=== PATIENT | female | born 1945 | race Caucasian/White ===

== ENCOUNTER 2016-11-12 10:33 | Day surgery (SDC) | payer OTHER ==
[~2016-11-12] VITALS: Ht 160 cm; Wt 79.7 kg
[~2016-11-12 10:33] MED LIST: AMLO-147 PO; FOLI-49 PO; GABA300C16 PO; LANT3I SC; LISI-313 PO; LOSA25TA2 PO; PANT40TA4 PO; SULI150T39 PO
[2016-11-12] MEDS ORDERED: PROPOFOL 20 ML ONE (10:55)
[2016-11-12] MEDS ORDERED: ALLO100T PO (11:33)
[2016-11-12] MEDS ORDERED: NITR0.4T6 SL (11:33)
[2016-11-12] MEDS ORDERED: FURO20TA3 PO (11:33)
[2016-11-12] MEDS ORDERED: METO25TA4 PO (11:33)
[2016-11-12 11:37] VITALS: Ht 160 cm; Wt 79.7 kg
[2016-11-12 11:52] VITALS: BP 106/56; PULSE 75; RESP 10
--- NOTE | 2016-11-12 12:34 | GILP ---
DATE OF PROCEDURE: 11/12/2016 NAME OF PROCEDURE: Colonoscopy. SURGEON: Claudio Morillo MD PREOPERATIVE DIAGNOSES: Rectal bleeding. POSTOPERATIVE DIAGNOSES 1. Colonoscopy all the way to the cecum. 2. Poor prep, making the exam very suboptimal. 3. Internal and external hemorrhoids. INDICATION FOR THE PROCEDURE: Ms. Marsha Mcqueen is a 71-year-old female patient who had rectal bleed ing. The patient never had screening colonoscopy. The patient was scheduled for colonoscopy for fu rther evaluation. The procedure and possible complications are well explained to the patient and the family and consen t was obtained. DESCRIPTION OF PROCEDURE: Under the influence of anesthesia, the colonoscope was carefully introduc ed in the rectum and under direct vision, it was advanced all the way to the cecum. FINDINGS: The patient had some solid stool, especially in the sigmoid area making the exam very sub optimal. The patient was noted to have internal and external hemorrhoids. She tolerated the procedure very well and there was no complication from the procedure. At the end of the procedure, she was awake with stable vital signs and she was discharged home to the care of h er family. IMPRESSION: 1. Colonoscopy all the way to the cecum. 2. Poor prep with solid stool in the sigmoid colon making the exam very suboptimal. 3. Internal and external hemorrhoids. PLAN: Anusol-HC 2.5% cream b.i.d. Dictated By: CLAUDIO JOHNSON/SOFIYA Conf#: [id number] DID#: [id number] CC: CLAUDIO MORILLO MD;*EndCC*
[2016-11-12 12:44] VITALS: BP 104/56; RESP 20
--- NOTE | 2016-11-12 22:39 | CONS ---
DATE OF ADMISSION: 11/12/2016 DATE OF CONSULTATION: TYPE OF CONSULTATION: Preoperative gastroenterology. I thank you very much for this kind referral. HISTORY OF PRESENT ILLNESS: Ms. Marsha Mcqueen is a 71-year-old female patient who has been ref erred to me for further evaluation of rectal bleeding. The patient also complains of change in the bowel habit with constipation. She never had screening colonoscopy. There is no past history of co brian neoplasm. Her appetite has been good, and there is no history of significant weight loss. She does not have any upper abdominal pain, nausea or vomiting. There is no history of peptic ulcer dis ease. She is not taking any nonsteroidal anti-inflammatory agents. There is no history of gallston es. She does not have any fever, chills or jaundice. There is no history of liver disease. She is hypertensive. She has diabetes. There is no history of heart disease or lung problem. She has hi story of renal stones. SOCIAL HISTORY: She is a nonsmoker. She does not abuse alcohol. FAMILY HISTORY: Negative for gastrointestinal tract neoplasm. ALLERGIES: SHE SAYS SHE IS ALLERGIC TO PRAVASTATIN. MEDICATIONS: 1. Lisinopril. 2. Metformin. PHYSICAL EXAMINATION: GENERAL: She is 5 feet 2 inches tall, and she weighs 200 pounds. HEART: Normal first and second heart sounds. LUNGS: Clear. ABDOMEN: Soft without any distention. The patient has got surgical scar on the anterior abdominal wall. Liver and spleen are not palpable. There are no masses. Normal bowel sounds are heard. CENTRAL NERVOUS SYSTEM: Examination does not reveal any focal neurological deficit. IMPRESSION: 1. Rectal bleeding. 2. The patient went to the emergency room, and rectal examination revealed hemorrhoid. 3. Change in the bowel habit with constipation. 4. The patient never had screening colonoscopy. 5. Hypertension. 6. Diabetes mellitus. 7. History of renal stones. 8. Status post surgery for ventral hernia. 9. HISTORY OF ALLERGY TO PRAVASTATIN. PLAN: 1. Screening colonoscopy. 2. Because of the patient's age, she needs monitored anesthesia care. The procedure and possible complications are well explained to the patient and her daughter. They u nderstand and consent to the procedure. I thank you once again. With warmest personal regards, Dictated By: CLAUDIO JOHNSON/SOFIYA Conf#: [id number] DID#: [id number]
== END 2016-11-12 13:10 | disposition home or self-care (01) ==
LOC: GIL 10:33
PROVIDERS: ATTEND Internal Medicine Gastroenterology
DX: R19.4 Change in bowel habit (principal); K64.4 Residual hemorrhoidal skin tags; K64.8 Other hemorrhoids; I10 Essential (primary) hypertension; E11.9 Type 2 diabetes mellitus without complications
CPT/HCPCS: 45378; Z7610

== ENCOUNTER 2016-12-06 10:03 | Day surgery (SDC) | payer OTHER ==
[2016-12-06] VITALS (14 sets, daily range): BP systolic 92–124; BP diastolic 46–73; PULSE 64–72; RESP 16–25; Ht 157.5 cm; Wt 77.0 kg
[~2016-12-06] VITALS: Ht 157.5 cm; Wt 77.0 kg
[~2016-12-06 10:03] MED LIST changes: +ALLO100T PO; -AMLO-147 PO; +CEFAZOLIN 1 GM INJ ONE; +CEFAZOLIN 2 GM/50 ML (PMX) 50 ML IVPB SCH; +FURO20TA3 PO; -LISI-313 PO; +METO25TA4 PO; +NITR0.4T6 SL; -PANT40TA4 PO; +SOD CHLORIDE 0.9% 1,000 ML IV SCH; +SUCCINYLCHOLINE CHLORIDE 100 MG/5 ML SYG IV ONE
[2016-12-06] MEDS ORDERED: HYDR-3498 (11:15)
[2016-12-06] MEDS ORDERED: PRAV20TA63 PO (11:15)
[2016-12-06] MEDS ORDERED: BUPIVACAINE 0.25% (MPF) 30 ML INJ ONE (11:21)
[2016-12-06 11:22] LABS: ADD SCAN DIFF NO
[2016-12-06 11:23] LABS: BASOPHILS % 0.5 % (0.0-2.0); EOSINOPHILS # 0.4 10^3/ul (0.0-0.5); EOSINOPHILS % 6.2 % (0.0-7.0); HEMOGLOBIN 10.6 g/dl (12.0-16.0); LYMPHOCYTES # 1.3 10^3/ul (0.8-2.9); LYMPHOCYTES % 22.6 % (15.0-51.0); MEAN CORPUSCULAR HEMOGLOBIN 23.9 pg (29.0-33.0); MEAN CORPUSCULAR HGB CONC 32.1 g/dl (32.0-37.0); MEAN CORPUSCULAR VOLUME 74.5 fl (82.0-101.0); MONOCYTE # 0.3 10^3/ul (0.3-0.9); MONOCYTES % 5.9 % (0.0-11.0); NEUTROPHIL # 3.6 10^3/ul (1.6-7.5); NEUTROPHILS % 64.4 % (39.0-77.0); PLATELET COUNT 264 10^3/UL (140-415); RED BLOOD COUNT 4.43 10^6/ul (4.20-5.40); RED CELL DISTRIBUTION WIDTH 15.5 % (11.5-14.5); WHITE BLOOD COUNT 5.6 10^3/ul (4.8-10.8)
--- NOTE | 2016-12-06 11:33 | RADRPT ---
PROCEDURE: XR Chest 1 View. CLINICAL INDICATION: Abnormal breath sounds, preop. TECHNIQUE: AP view of the chest was obtained. COMPARISON: August 07, 2016 FINDINGS: The heart size is within normal limits. Calcified atherosclerosis is noted in the aorta. Mild eleva tion right hemidiaphragm is identified. No consolidations are identified. No pneumothorax is seen. The lungs are hyperexpanded. Mild interstitial prominence is seen in both lungs. Subsegmental atele ctasis is noted in the left lower lobe. The osseous structures are osteopenic, but appear grossly in tact. IMPRESSION: Calcified atherosclerosis in the aorta. Mild elevation right hemidiaphragm. Hyperexpanded lungs with diffuse mild interstitial prominence in both lungs. Interstitial prominenc e could be chronic. Findings could reflect COPD. Subsegmental atelectasis in the left lower lobe. RPTAT: AA .Saulo Toth MD, Date Time Electronically viewed and signed by .Saulo Toth MD, MD on 12/06/2016 11:33 .P/
[2016-12-06 11:35] LABS: CALCIUM 9.2 mg/dl (8.4-10.2); CREATININE 1.05 mg/dl (0.44-1.00); POTASSIUM 4.2 mmol/L (3.5-5.1)
[2016-12-06 11:41] LABS: INR 1.01; PROTIME 13.3 Sec (12.2-14.2)
[2016-12-06 11:46] LABS: PARTIAL THROMBOPLASTIN TIME 26.2 Sec (25.0-35.0)
[2016-12-06] MEDS ORDERED: FENTAnyl 50 MCG/ML VIAL ONE (11:58)
[2016-12-06] MEDS ORDERED: EPHEDrine SULFATE 50 MG/5 ML SYG IV PRN (12:30)
[2016-12-06] MEDS ORDERED: MEPERIDINE 25 MG INJ IV PRN (12:30)
[2016-12-06] MEDS ORDERED: INSULIN ASPART [NOVOLOG] 3 ML PEN SC ONE (12:30)
[2016-12-06] MEDS ORDERED: hydrALAzine 20 MG INJ IV PRN (12:30)
[2016-12-06] MEDS ORDERED: LABETALOL HCL 20MG INJ IV PRN (12:30)
[2016-12-06] MEDS ORDERED: HYDROmorphONE (0.2 MG/ML) 10ML SYG IV PRN ×3 (12:30)
[2016-12-06] MEDS ORDERED: FENTAnyl 50 MCG/ML VIAL IV PRN ×3 (12:30)
[2016-12-06] MEDS ORDERED: ONDANSETRON 4 MG INJ IV PRN (12:30)
--- NOTE | 2016-12-06 13:24 | OPR ---
DATE OF OPERATION: 12/06/2016 INDICATION: This is a 71-year-old female with a mucosal prolapse. She requests surgical repair. R isks, alternatives, benefits, and personnel were discussed with the patient. Potential complication s were discussed. The patient expressed understanding and consents to the operation. Due to her ag e and morbidity a transanal approach is attempted. PREOPERATIVE DIAGNOSIS: Mucosal prolapse. POSTOPERATIVE DIAGNOSIS: Mucosal prolapse. OPERATION PERFORMED: 1. Transanal proctoplasty. 2. Ligation of the internal hemorrhoidal artery, multiple x6. 3. Rigid proctoscopy. SURGEON: Sai Person MD SPECIMEN: None. COMPLICATIONS: None. ANESTHESIA: General. PROCEDURE: The patient was taken to the OR and prepped and draped in the usual sterile fashion. Rowe rgical timeout was performed. IV antibiotics were given. Initial rigid proctoscopy was performed. No evidence of any masses or obstructive lesions. Ultrasound-guided transanal ligation of the hemo rrhoidal arteries were performed in a [id number] fashion circumferentially around the whole chante s. Additionally, a transanal proctoplasty was performed by first placing a [id number] 2-0 Vicr yl at the internal hemorrhoidal artery and plicating the mucosal prolapse up to the dentate line. T his was then tied down with proximal retraction. This was performed in 6 to 7 areas circumferential ly. There was good hemostasis. Rigid proctoscopy was performed again to make sure that there was p atency of the anal canal. There was good patency. Local anesthesia was injected perianally. There was hemostasis. Dry dressings were applied. Dictated By: SAI PERSON MD SB/SOFIYA Conf#: [id number] DID#: [id number]
[2016-12-06] MEDS ORDERED: HYDROCODONE/APAP (5/325) TAB PO ONE (13:30)
--- NOTE | 2016-12-07 13:26 | RADRPT ---
Vent Rate: 62 bpm RR Interval: 0 msec [place] Interval: 132 msec QRS Duration: 90 msec QT Interval: 456 msec QTC Interval: 462 msec P-R-T [place]: 37 - -4 - 41 degrees Normal sinus rhythm Normal ECG No previous tracing available for comparison Electronically Signed By: Yonny Joy [id number]
== END 2016-12-06 16:00 | disposition home or self-care (01) ==
LOC: SDS 10:03
PROVIDERS: ATTEND Surgery
DX: K62.3 Rectal prolapse (principal); I10 Essential (primary) hypertension; E11.9 Type 2 diabetes mellitus without complications
CPT/HCPCS: 45505; 46946; 71010; 80048; 82962; 85025; 85610; 85730; 93005; J0330; J0690; J1170; J1815; J3010; Z7512; Z7610

== ENCOUNTER 2017-03-03 05:50 | Inpatient (IN) | payer OTHER ==
[~2017-03-03] VITALS: Ht 154.9 cm; Wt 80.1 kg
[2017-03-03] VITALS (18 sets, daily range): BP systolic 98–143; BP diastolic 51–92; PULSE 52–89; RESP 15–26; Ht 154.9 cm; Wt 80.1 kg
[~2017-03-03 05:50] MED LIST changes: -CEFAZOLIN 1 GM INJ ONE; +CEFAZOLIN 2 GM/50 ML (PMX) 50 ML IVPB ONE; -CEFAZOLIN 2 GM/50 ML (PMX) 50 ML IVPB SCH; +HYDR-3498; +PRAV20TA63 PO; -SUCCINYLCHOLINE CHLORIDE 100 MG/5 ML SYG IV ONE; -SULI150T39 PO
[2017-03-03] MEDS ORDERED: CEFAZOLIN 2 GM/50 ML (PMX) 50 ML IVPB SCH ×2 (06:00→10:30)
[2017-03-03] MEDS ORDERED: BUPIVACAINE 0.25% (MPF) 30 ML INJ ONE ×2 (06:57→10:11)
[2017-03-03] MEDS ORDERED: POLYMYXIN/BACITRACIN 1L IRRIG ONE (06:57)
[2017-03-03] MEDS ORDERED: ROCURONIUM 50 MG INJ ONE ×2 (07:52→09:21)
[2017-03-03] MEDS ORDERED: PROPOFOL 20 ML ONE (07:52)
[2017-03-03] MEDS ORDERED: LIDOCAINE 2% (SDV) 5 ML INJ ONE (07:52)
[2017-03-03] MEDS ORDERED: FENTAnyl 50 MCG/ML VIAL ONE (07:52)
[2017-03-03] MEDS ORDERED: CEFAZOLIN 1 GM INJ ONE (08:04)
[2017-03-03] MEDS ORDERED: ONDANSETRON 4 MG INJ ONE (08:23)
[2017-03-03] MEDS ORDERED: FAMOTIDINE 20 MG INJ ONE (08:23)
[2017-03-03] MEDS ORDERED: EPHEDrine SULFATE 50 MG/5 ML SYG ONE (08:24)
[2017-03-03] MEDS ORDERED: POLYMYXIN/BACITRACIN 1L IRRIG IRR ONE (08:47)
[2017-03-03] MEDS ORDERED: HYDROmorphONE 2 MG/ML SYG ONE (08:51)
[2017-03-03] MEDS ORDERED: NEOSTIGMINE 3 MG/3 ML SYRINGE ONE ×2 (09:21→10:09)
[2017-03-03] MEDS ORDERED: GLYCOPYRROLATE 0.4 MG INJ ONE (09:21)
[2017-03-03] MEDS ORDERED: PROCHLORPERAZINE 10 MG INJ IV PRN (10:00)
[2017-03-03] MEDS ORDERED: ONDANSETRON 4 MG INJ IV PRN (10:00)
[2017-03-03] MEDS ORDERED: MEPERIDINE 25 MG INJ IV PRN (10:00)
[2017-03-03] MEDS ORDERED: HYDROmorphONE (0.2 MG/ML) 10ML SYG IV PRN (10:00)
[2017-03-03] MEDS ORDERED: DIPHENHYDRAMINE 50 MG INJ IV PRN ×2 (10:00→10:30)
[2017-03-03] MEDS ORDERED: SOD CHLORIDE 0.9% 1,000 ML IV SCH (10:23)
--- NOTE | 2017-03-03 10:27 | OPR ---
Date/Time of Note Date/Time of Note DATE: 03/03/17 TIME: 10:25 Operative Report Preoperative Diagnosis rectal prolapse and recurrent incisional hernia Postoperative Diagnosis same Operation/Procedure Performed lap converted to open rectopexy mesh implantation lysis of adhesions 90 mins recurrent incisional hernia repair Luba RAMOS Mar 03, 2017 10:27
[2017-03-03] MEDS ORDERED: HYDROmorphONE 1 MG/ML SYG IV PRN ×2 (10:30)
[2017-03-03] MEDS ORDERED: NALOXONE (0.4 MG/ML) INJ IV PRN (10:30)
[2017-03-03] MEDS ORDERED: KETOROLAC 15 MG INJ IV PRN (10:30)
[2017-03-03] MEDS: FENTAnyl 50 MCG/ML VIAL IV PRN ×2 (10:41→10:52)
[2017-03-03] MEDS: HYDROmorphONE 0.2 MG/ML PCA IV SCH (10:46)
[2017-03-03] MEDS ORDERED: INSULIN ASPART [NOVOLOG] 3 ML PEN SC ONE (11:00)
--- NOTE | 2017-03-03 13:53 | OPR ---
DATE OF OPERATION: 03/03/2017 INDICATION: This is a 71-year-old female with a recurrent incarcerated incisional hernia and rectal prolapse. She requests surgical repair. Risks, alternatives, benefits, and personnel were discuss ed with the patient. Patient expressed understanding and consents to the operation. PREOPERATIVE DIAGNOSIS: Recurrent incarcerated incisional hernia and rectal prolapse. POSTOPERATIVE DIAGNOSIS: Recurrent incarcerated incisional hernia and rectal prolapse. OPERATION PERFORMED: 1. Laparoscopic converted to open rectopexy. 2. Open recurrent incarcerated incisional hernia repair. 3. Implantation of mesh in the abdomen with CPT code 025899. 4. Open lysis of adhesions of 90 minutes. SURGEON: Sai Person MD SPECIMEN: Hernia sac. COMPLICATIONS: None. ANESTHESIA: General. DESCRIPTION OF PROCEDURE: The patient was taken to the OR and prepped and draped in usual sterile fashion. Surgical timeout was performed. IV antibiotics were given. Supraumbilical midline incisi on is made with a 15 blade. Dissection cautery was carried down to the fascia, 0 Vicryl stay suture s were placed on either side of midline . The fascia was opened and balloon Alma trocar was intro duced. Pneumoperitoneum was established. Upon initial inspection, there were a significant amount of adhesions. Two ports were placed in the right lower quadrant, one 5 mm and one 12 mm under direc t visualization with an optical trocars. Laparoscopic lysis of adhesions was performed; however, up on further inspection, there was evidence that the bowel adherent to old mesh in the midline and dec ision was made to open the abdomen. Midline incision was extended excising the cicatrix of the prio r incision. Dissection cautery was carried down to the fascial layer. This was opened carefully us ing sharp 10 blade. Upon further inspection, there was extensive amount of adhesions in the abdomen . These were taken down with meticulous careful lysis of adhesions with Metzenbaum scissors. The r ectum was then identified. The peritoneum around the rectum was then divided allowing further super ior mobilization. Fixed Acell mesh was used for fixation to the rectum and the anterior portion wit h multiple interrupted 2-0 Vicryls. This was then rectopexied to the sacral promontory using interr upted 2-0 Vicryl. There was good hemostasis. The hernia was then identified in the inferior portio n of the midline. This hernia sac was excised. The midline incision was then closed with running # 1 looped PDS from inferior to superior, superior to inferior. The wound was irrigated with irrigati on. The skin was closed with skin con. Local anesthesia was injected in all sites. Dry dressi ngs were applied ____. Dictated By: SAI KIM/SOFIYA Conf#: [id number] DID#: [id number]
[2017-03-03 15:16] LABS: ADD SCAN DIFF NO
[2017-03-03 15:18] LABS: BASOPHILS % 0.2 % (0.0-2.0); EOSINOPHILS % 0.2 % (0.0-7.0); HEMATOCRIT 34.8 % (37.0-47.0); LYMPHOCYTES # 1.1 10^3/ul (0.8-2.9); LYMPHOCYTES % 8.3 % (15.0-51.0); MEAN CORPUSCULAR HEMOGLOBIN 24.7 pg (29.0-33.0); MEAN CORPUSCULAR HGB CONC 31.6 g/dl (32.0-37.0); MEAN CORPUSCULAR VOLUME 78.2 fl (82.0-101.0); MEAN PLATELET VOLUME 11.1 fl (7.4-10.4); MONOCYTE # 0.4 10^3/ul (0.3-0.9); MONOCYTES % 3.3 % (0.0-11.0); NEUTROPHIL # 11.2 10^3/ul (1.6-7.5); NEUTROPHILS % 87.7 % (39.0-77.0); PLATELET COUNT 211 10^3/UL (140-415); RED BLOOD COUNT 4.45 10^6/ul (4.20-5.40); RED CELL DISTRIBUTION WIDTH 16.6 % (11.5-14.5); WHITE BLOOD COUNT 12.8 10^3/ul (4.8-10.8)
[2017-03-03] MEDS ORDERED: DEXTROSE 50% 50 ML SYRINGE IV PRN ×2 (15:30)
[2017-03-03] MEDS ORDERED: hydrALAzine 20 MG INJ IV PRN (15:30)
[2017-03-03] MEDS ORDERED: GLUCOSE GEL 15 GRAM TUBE PO PRN ×2 (15:30)
[2017-03-03] MEDS ORDERED: GLUCAGON 1 MG INJ IM PRN (15:30)
[2017-03-03] MEDS ORDERED: GLUCOSE GEL 15 GRAM TUBE BUCCAL PRN (15:30)
[2017-03-03 15:37] LABS: ALBUMIN 4.2 g/dl (3.3-4.9); BILIRUBIN,INDIRECT 0.1 mg/dl (0-1.1); BILIRUBIN,TOTAL 0.1 mg/dl (0.2-1.3); CALCIUM 8.5 mg/dl (8.4-10.2); CREATININE 1.03 mg/dl (0.44-1.00); POTASSIUM 4.3 mmol/L (3.5-5.1); TOTAL PROTEIN 6.3 g/dl (6.1-8.1)
[2017-03-03] MEDS: ONDANSETRON 4 MG INJ IV PRN (16:12)
[2017-03-03] MEDS: SOD CHLORIDE 0.9% 1,000 ML IV SCH ×2 (16:16→19:20)
[2017-03-03] MEDS: CEFAZOLIN 2 GM/50 ML (PMX) 50 ML IVPB SCH ×2 (16:22→23:04)
--- NOTE | 2017-03-03 16:53 | HP ---
DATE OF ADMISSION: 03/03/2017 HISTORY OF PRESENT ILLNESS: The patient is a 71-year-old female with recurrent incarcerated incisio nal hernia and rectal prolapse. The patient was evaluated in surgical consultation by Dr. Person. The patient was brought to the hospital and underwent laparoscopic converted to open rectopexy open rec urrent incarcerated incisional hernia repair with implantation of mesh and lysis of adhesions. Post operatively, the patient experienced significant pain, and patient was started on SHOE REPAIRMAN Dilaudid and a dmitted for further evaluation and management to medical/surgical floor. The patient currently cuauhtemoc es any nausea, vomiting, fever. PAST MEDICAL HISTORY: Positive for hypertension, diabetes. PAST SURGICAL HISTORY: History of recurrent ventral hernia repair, history of colon surgery, status post hysterectomy and history of recurrent incarcerated incisional hernia repair by Dr. Person in [facility] 2015. FAMILY HISTORY: Noncontributory. SOCIAL HISTORY: The patient lives with her family. The patient denies any tobacco use, denies any alcohol use, denies any illicit drug use. ALLERGIES: NO KNOWN ALLERGIES. HOME MEDICATIONS: Include: 1. Allopurinol. 2. Folic acid. 3. Furosemide. 4. Gabapentin. 5. [place]. 6. Lantus. 7. Cozaar 8. Metoprolol. 9. Nitroglycerin. 10. Pravastatin. REVIEW OF SYSTEMS: A 12-point review of systems is negative unless what mentioned in the HPI. PHYSICAL ASSESSMENT: GENERAL: This is a well-developed, obese female currently awake, alert, in no acute distress, awake , alert. VITAL SIGNS: Temperature 98.7, pulse is 61, blood pressure 112/55, respiratory rate 18, oxygen satu ration 96% on 2 liters nasal cannula. HEENT: Head is atraumatic, normocephalic. Pupils equal, round, reactive to light and accommodation . Oral mucosa is pink and moist. NECK: Supple, no cervical lymphadenopathy, no thyromegaly. LUNGS: Clear bilaterally. There are no rhonchi, wheezes, or rales noted. CARDIOVASCULAR: Normal S1 and S2. No murmurs, gallops, clicks, rubs noted. ABDOMEN: Status post surgery with a midline surgical incision with intact dressing. GENITOURINARY: Matta catheter with yellow urine. EXTREMITIES: Pulses equal bilaterally 2+. SKIN: No rash, petechiae noted. NEUROLOGIC: Patient is awake, alert and oriented x3, no focal deficits noted on laboratory data on admission. LABORATORY DATA PRIOR TO ADMISSION: CBC: White blood cells 5.4, hemoglobin 10.7, hematocrit 32.9, platelets 245. BMP: Sodium is 136, potassium 4.3, chloride 103, carbon dioxide 25, calcium 8.9. B UN is 49, creatinine 1.36, INR is 1, PT 10.3. Urinalysis unremarkable. ASSESSMENT AND PLAN: 1. Recurrent incarcerated incisional hernia and rectal prolapse status post an open recurrent incar cerated incisional hernia repair with implantation of mesh and lysis of adhesions, status post lapar oscopic converted to open rectopexy. We will continue IV fluids. Continue to follow up surgical re commendation. Zofran p.r.n. for nausea, Dilaudid SHOE REPAIRMAN for pain control. Continue cefazolin. 2. Diabetes mellitus type 2. Will continue to monitor Accu-Chek q.4h. with NovoLog scale coverage. 3. Hypertension. Continue to monitor blood pressure, hydralazine p.r.n. for systolic blood pressur e above 170. Sequential compression devices for deep venous thrombosis prophylaxis. Further recomm endations based on clinical course. Plan of care discussed with Dr. Kim. Dictated By: SHILA PRESSLEY [employer]E GOODS INSPECTOR for CHUY KIM MD SR/NTS Conf#: [id number] DID#: [id number]
[2017-03-03] MEDS: INSULIN ASPART [NOVOLOG] 3 ML PEN SC SCH ×2 (17:00→21:00)
[2017-03-04] MEDS: INSULIN ASPART [NOVOLOG] 3 ML PEN SC SCH ×6 (01:00→21:00)
[2017-03-04] MEDS: ONDANSETRON 4 MG INJ IV PRN ×2 (01:33→17:41)
[2017-03-04 06:29] LABS: ADD SCAN DIFF NO
[2017-03-04 06:36] LABS: BASOPHILS % 0.1 % (0.0-2.0); EOSINOPHILS # 0.1 10^3/ul (0.0-0.5); EOSINOPHILS % 0.6 % (0.0-7.0); HEMATOCRIT 29.7 % (37.0-47.0); HEMOGLOBIN 9.3 g/dl (12.0-16.0); LYMPHOCYTES % 11.6 % (15.0-51.0); MEAN CORPUSCULAR HEMOGLOBIN 24.4 pg (29.0-33.0); MEAN CORPUSCULAR HGB CONC 31.3 g/dl (32.0-37.0); MEAN PLATELET VOLUME 11.6 fl (7.4-10.4); MONOCYTE # 0.5 10^3/ul (0.3-0.9); MONOCYTES % 5.4 % (0.0-11.0); NEUTROPHIL # 6.9 10^3/ul (1.6-7.5); NEUTROPHILS % 81.9 % (39.0-77.0); PLATELET COUNT 199 10^3/UL (140-415); RED BLOOD COUNT 3.81 10^6/ul (4.20-5.40); RED CELL DISTRIBUTION WIDTH 16.7 % (11.5-14.5); WHITE BLOOD COUNT 8.4 10^3/ul (4.8-10.8)
[2017-03-04] MEDS: HYDROmorphONE 0.2 MG/ML PCA IV SCH (06:37)
[2017-03-04 07:00] VITALS: BP 111/56; RESP 18
[2017-03-04 07:16] LABS: ALBUMIN 3.6 g/dl (3.3-4.9); ALBUMIN/GLOBULIN RATIO 1.8; BILIRUBIN,INDIRECT 0.3 mg/dl (0-1.1); BILIRUBIN,TOTAL 0.3 mg/dl (0.2-1.3); CALCIUM 8.2 mg/dl (8.4-10.2); CREATININE 1.03 mg/dl (0.44-1.00); POTASSIUM 4.4 mmol/L (3.5-5.1); TOTAL PROTEIN 5.6 g/dl (6.1-8.1)
[2017-03-04] MEDS: CEFAZOLIN 2 GM/50 ML (PMX) 50 ML IVPB SCH (09:02)
[2017-03-04] MEDS: SOD CHLORIDE 0.9% 1,000 ML IV SCH ×3 (11:40→21:45)
--- NOTE | 2017-03-04 16:33 | PN ---
Date/Time of Note Date/Time of Note DATE: 03/04/17 TIME: 16:33 Assessment/Plan VTE Prophylaxis VTE Prophylaxis Intervention: SCD's Lines/Catheters IV Catheter Type (from Nrs): Peripheral IV Assessment/Plan Chief Complaint/Hosp Course s/p lap converted to open rectopexy and incisional hernia repair Problems: Assessment/Plan doing well start clears Subjective 24 Hr Interval Summary Free Text/Dictation no new issues, some drainage as expected Exam/Review of Systems Vital Signs Vitals Vital Signs Date Time Temp Pulse Resp B/P Pulse Ox O2 Delivery O2 Flow Rate FiO2 03/04/17 12:21 16 03/04/17 07:00 98.7 79 111/56 100 03/03/17 20:00 Nasal Cannula 2.0 Intake and Output 03/03/17 03/03/17 03/04/17 15:00 23:00 07:00 Intake Total 1900 ml 150 ml 500 ml Output Total 50 ml 200 ml 300 ml Balance 1850 ml -50 ml 200 ml Exam dressings intact Results Result Diagram: 03/04/17 0525 03/04/17 0517 Results 24 hrs Laboratory Tests Test 03/03/17 17:51 03/03/17 21:47 03/03/17 23:08 03/04/17 01:08 Bedside Glucose 131 147 146 138 Test 03/04/17 05:07 03/04/17 05:17 03/04/17 05:25 03/04/17 06:22 Bedside Glucose 128 Sodium Level 139 Potassium Level 4.4 Chloride Level 106 Carbon Dioxide Level 25 Anion Gap 12 Blood Urea Nitrogen 17 Creatinine 1.03 H Glucose Level 119 Calcium Level 8.2 L Total Bilirubin 0.3 Direct Bilirubin 0.00 Indirect Bilirubin 0.3 Aspartate Amino Transf (AST/SGOT) 17 Alanine Aminotransferase (ALT/SGPT) 22 Alkaline Phosphatase 51 Total Protein 5.6 L Albumin 3.6 Globulin 2.00 Albumin/Globulin Ratio 1.80 White Blood Count 8.4 # Red Blood Count 3.81 L Hemoglobin 9.3 L Hematocrit 29.7 L Mean Corpuscular Volume 78.0 L Mean Corpuscular Hemoglobin 24.4 L Mean Corpuscular Hemoglobin Concent 31.3 L Red Cell Distribution Width 16.7 H Platelet Count 199 Mean Platelet Volume 11.6 H Neutrophils % 81.9 H Lymphocytes % 11.6 L Monocytes % 5.4 Eosinophils % 0.6 Basophils % 0.1 Nucleated Red Blood Cells % 0.0 Neutrophils # 6.9 Lymphocytes # 1.0 Monocytes # 0.5 Eosinophils # 0.1 Basophils # 0.0 Nucleated Red Blood Cells # 0.0 Lab Scanned Report REFERENCE LAB Test 03/04/17 09:00 03/04/17 12:57 Bedside Glucose 111 99 Medications Medications Current Medications Naloxone HCl (Narcan) 0.2 mg PRN PRN IV DECREASED REPIRATORY RATE; Start at 10:30 Hydromorphone HCl (Dilaudid SILVER LAP MACHINE TENDER) Q4PCA IV Last administered on 03/04/17 06:37 ; Admin Dose 6 MG; Start 03/03/17 at 10:30 Hydromorphone HCl (Dilaudid) 0.2 mg Q4H PRN IV PAIN LEVEL 1-5; Start 03/03/17 at 10:30 Hydromorphone HCl (Dilaudid) 0.4 mg Q4H PRN IV PAIN LEVEL 6-10; Start 03/03/17 at 10:30 Ondansetron HCl (Zofran Inj) 4 mg Q6H PRN IV NAUSEA AND/OR VOMITING Last administered on 03/04/17 01:33; Admin Dose 4 MG; Start 03/03/17 at 10:30 Diphenhydramine HCl (Benadryl) 12.5 mg Q6H PRN IV ITCHING; Start 03/03/17 at 10 :30 Insulin Aspart (Novolog Insulin Pen) NOVOLOG *MILD* ALGORITHM Q4 SC ; Start at 17:00 Hydralazine HCl (Apresoline) 10 mg Q6H PRN IV SBP>170; Start 03/03/17 at 15:30 Miscellaneous Information 1 ea NOTE XX ; Start 03/03/17 at 15:30 Glucose (Glutose) 15 gm Q15M PRN PO DECREASED GLUCOSE; Start 03/03/17 at 15:30 Glucose (Glutose) 22.5 gm Q15M PRN PO DECREASED GLUCOSE; Start 03/03/17 at 15: 30 Dextrose (D50w Syringe) 25 ml Q15M PRN IV DECREASED GLUCOSE; Start 03/03/17 at 15:30 Dextrose (D50w Syringe) 50 ml Q15M PRN IV DECREASED GLUCOSE; Start 03/03/17 at 15:30 Glucagon (Glucagen) 1 mg Q15M PRN IM DECREASED GLUCOSE; Start 03/03/17 at 15:30 Glucose 15 gm 15 gm Q15M PRN BUCCAL DECREASED GLUCOSE; Start 03/03/17 at 15:30 Sodium Chloride (NS) 1,000 ml @ 100 mls/hr Q10H IV Last administered on t 14:14; Admin Dose 100 MLS/HR; Start 03/04/17 at 12:00 Luba RAMOS Mar 04, 2017 16:33
--- NOTE | 2017-03-04 17:08 | PN ---
Date/Time of Note Date/Time of Note DATE: 03/04/17 TIME: 17:05 Assessment/Plan VTE Prophylaxis VTE Prophylaxis Intervention: SCD's Lines/Catheters IV Catheter Type (from Nrs): Peripheral IV Assessment/Plan Chief Complaint/Hosp Course Patient stated that she is very hungry, complains of pain, continues on Dilaudid METABOLIC SPECIALIST for pain. ASSESSMENT AND PLAN: 1. Recurrent incarcerated incisional hernia and rectal prolapse status post an open recurrent incarcerated incisional hernia repair with implantation of mesh and lysis of adhesions, status post laparoscopic converted to open rectopexy. Continue IV fluids. Continue to follow up surgical recommendation. Zofran p.r.n. for nausea, Dilaudid METABOLIC SPECIALIST for pain control. Continue cefazolin. Advance diet per surgery. 2. Diabetes mellitus type 2. Accu-Chek q.4h. with NovoLog scale coverage. 3. Hypertension. Continue to monitor blood pressure, hydralazine p.r.n. for systolic blood pressure above 170. Sequential compression devices for deep venous thrombosis prophylaxis. Further recommendations based on clinical course. Plan of care discussed with Dr. Harris. Problems: Exam/Review of Systems Vital Signs Vitals Vital Signs Date Time Temp Pulse Resp B/P Pulse Ox O2 Delivery O2 Flow Rate FiO2 03/04/17 12:21 16 03/04/17 07:00 98.7 79 111/56 100 03/03/17 20:00 Nasal Cannula 2.0 Intake and Output 03/03/17 03/03/17 03/04/17 15:00 23:00 07:00 Intake Total 1900 ml 150 ml 500 ml Output Total 50 ml 200 ml 300 ml Balance 1850 ml -50 ml 200 ml Exam Constitutional: alert, oriented Head: normocephalic Neck: supple Cardiovascular: nl pulses Gastrointestinal: other (Status post surgery), soft Extremities: normal pulses Neurological: nl mental status Results Result Diagram: 03/04/17 0525 03/04/17 0517 Results 24 hrs Laboratory Tests Test 03/03/17 17:51 03/03/17 21:47 03/03/17 23:08 03/04/17 01:08 Bedside Glucose 131 147 146 138 Test 03/04/17 05:07 03/04/17 05:17 03/04/17 05:25 03/04/17 06:22 Bedside Glucose 128 Sodium Level 139 Potassium Level 4.4 Chloride Level 106 Carbon Dioxide Level 25 Anion Gap 12 Blood Urea Nitrogen 17 Creatinine 1.03 H Glucose Level 119 Calcium Level 8.2 L Total Bilirubin 0.3 Direct Bilirubin 0.00 Indirect Bilirubin 0.3 Aspartate Amino Transf (AST/SGOT) 17 Alanine Aminotransferase (ALT/SGPT) 22 Alkaline Phosphatase 51 Total Protein 5.6 L Albumin 3.6 Globulin 2.00 Albumin/Globulin Ratio 1.80 White Blood Count 8.4 # Red Blood Count 3.81 L Hemoglobin 9.3 L Hematocrit 29.7 L Mean Corpuscular Volume 78.0 L Mean Corpuscular Hemoglobin 24.4 L Mean Corpuscular Hemoglobin Concent 31.3 L Red Cell Distribution Width 16.7 H Platelet Count 199 Mean Platelet Volume 11.6 H Neutrophils % 81.9 H Lymphocytes % 11.6 L Monocytes % 5.4 Eosinophils % 0.6 Basophils % 0.1 Nucleated Red Blood Cells % 0.0 Neutrophils # 6.9 Lymphocytes # 1.0 Monocytes # 0.5 Eosinophils # 0.1 Basophils # 0.0 Nucleated Red Blood Cells # 0.0 Lab Scanned Report REFERENCE LAB Test 03/04/17 09:00 03/04/17 12:57 Bedside Glucose 111 99 Medications Medications Current Medications Naloxone HCl (Narcan) 0.2 mg PRN PRN IV DECREASED REPIRATORY RATE; Start at 10:30 Hydromorphone HCl (Dilaudid METABOLIC SPECIALIST) Q4PCA IV Last administered on 03/04/17 06:37 ; Admin Dose 6 MG; Start 03/03/17 at 10:30 Hydromorphone HCl (Dilaudid) 0.2 mg Q4H PRN IV PAIN LEVEL 1-5; Start 03/03/17 at 10:30 Hydromorphone HCl (Dilaudid) 0.4 mg Q4H PRN IV PAIN LEVEL 6-10; Start 03/03/17 at 10:30 Ondansetron HCl (Zofran Inj) 4 mg Q6H PRN IV NAUSEA AND/OR VOMITING Last administered on 03/04/17 01:33; Admin Dose 4 MG; Start 03/03/17 at 10:30 Diphenhydramine HCl (Benadryl) 12.5 mg Q6H PRN IV ITCHING; Start 03/03/17 at 10 :30 Insulin Aspart (Novolog Insulin Pen) NOVOLOG *MILD* ALGORITHM Q4 SC ; Start at 17:00 Hydralazine HCl (Apresoline) 10 mg Q6H PRN IV SBP>170; Start 03/03/17 at 15:30 Miscellaneous Information 1 ea NOTE XX ; Start 03/03/17 at 15:30 Glucose (Glutose) 15 gm Q15M PRN PO DECREASED GLUCOSE; Start 03/03/17 at 15:30 Glucose (Glutose) 22.5 gm Q15M PRN PO DECREASED GLUCOSE; Start 03/03/17 at 15: 30 Dextrose (D50w Syringe) 25 ml Q15M PRN IV DECREASED GLUCOSE; Start 03/03/17 at 15:30 Dextrose (D50w Syringe) 50 ml Q15M PRN IV DECREASED GLUCOSE; Start 03/03/17 at 15:30 Glucagon (Glucagen) 1 mg Q15M PRN IM DECREASED GLUCOSE; Start 03/03/17 at 15:30 Glucose 15 gm 15 gm Q15M PRN BUCCAL DECREASED GLUCOSE; Start 03/03/17 at 15:30 Sodium Chloride (NS) 1,000 ml @ 100 mls/hr Q10H IV Last administered on t 14:14; Admin Dose 100 MLS/HR; Start 03/04/17 at 12:00 SHILA PRESSLEY Mar 04, 2017 17:08
[2017-03-04] MEDS ORDERED: ACCU-CHEK XX SCH (19:55)
[2017-03-04 20:12] VITALS: BP 128/73; PULSE 78; RESP 18
[2017-03-05] VITALS (8 sets, daily range): BP systolic 87–128; BP diastolic 53–62; PULSE 82–148; RESP 18–20
[2017-03-05] MEDS: ACCU-CHEK XX SCH ×3 (01:04→21:08)
[2017-03-05] MEDS ORDERED: ACCU-CHEK XX SCH (02:00)
[2017-03-05 06:03] LABS: ADD SCAN DIFF NO
[2017-03-05 06:11] LABS: BASOPHILS % 0.2 % (0.0-2.0); EOSINOPHILS # 0.1 10^3/ul (0.0-0.5); HEMATOCRIT 28.8 % (37.0-47.0); HEMOGLOBIN 8.9 g/dl (12.0-16.0); LYMPHOCYTES # 0.8 10^3/ul (0.8-2.9); LYMPHOCYTES % 8.2 % (15.0-51.0); MEAN CORPUSCULAR HEMOGLOBIN 24.3 pg (29.0-33.0); MEAN CORPUSCULAR HGB CONC 30.9 g/dl (32.0-37.0); MEAN CORPUSCULAR VOLUME 78.5 fl (82.0-101.0); MEAN PLATELET VOLUME 11.4 fl (7.4-10.4); MONOCYTE # 0.5 10^3/ul (0.3-0.9); MONOCYTES % 4.5 % (0.0-11.0); NEUTROPHIL # 8.7 10^3/ul (1.6-7.5); NEUTROPHILS % 85.5 % (39.0-77.0); PLATELET COUNT 182 10^3/UL (140-415); RED BLOOD COUNT 3.67 10^6/ul (4.20-5.40); RED CELL DISTRIBUTION WIDTH 16.9 % (11.5-14.5); WHITE BLOOD COUNT 10.2 10^3/ul (4.8-10.8)
[2017-03-05 06:42] LABS: CALCIUM 8.4 mg/dl (8.4-10.2); CREATININE 1.16 mg/dl (0.44-1.00)
--- NOTE | 2017-03-05 08:16 | PN ---
Date/Time of Note Date/Time of Note DATE: 03/05/17 TIME: 08:16 Assessment/Plan VTE Prophylaxis VTE Prophylaxis Intervention: SCD's Lines/Catheters IV Catheter Type (from Nrs): Peripheral IV Assessment/Plan Chief Complaint/Hosp Course s/p lap converted to open rectopexy and incisional hernia repair Problems: Assessment/Plan if able to tolerate regular diet ok to dc home Subjective 24 Hr Interval Summary Free Text/Dictation no issues overnight Exam/Review of Systems Vital Signs Vitals Vital Signs Date Time Temp Pulse Resp B/P Pulse Ox O2 Delivery O2 Flow Rate FiO2 03/05/17 04:13 18 03/04/17 20:12 98.0 78 128/73 97 Nasal Cannula 2.0 Intake and Output 03/04/17 03/04/17 03/05/17 15:00 23:00 07:00 Intake Total 1641 ml 1000 ml 1700 ml Output Total 800 ml 1200 ml Balance 1641 ml 200 ml 500 ml Exam c/d/i Results Result Diagram: 03/05/17 0420 03/05/17 0420 Results 24 hrs Laboratory Tests Test 03/04/17 09:00 03/04/17 12:57 03/04/17 17:40 03/04/17 20:27 Bedside Glucose 111 99 120 150 Test 03/05/17 04:20 White Blood Count 10.2 # Red Blood Count 3.67 L Hemoglobin 8.9 L Hematocrit 28.8 L Mean Corpuscular Volume 78.5 L Mean Corpuscular Hemoglobin 24.3 L Mean Corpuscular Hemoglobin Concent 30.9 L Red Cell Distribution Width 16.9 H Platelet Count 182 Mean Platelet Volume 11.4 H Neutrophils % 85.5 H Lymphocytes % 8.2 L Monocytes % 4.5 Eosinophils % 1.0 Basophils % 0.2 Nucleated Red Blood Cells % 0.0 Neutrophils # 8.7 H Lymphocytes # 0.8 Monocytes # 0.5 Eosinophils # 0.1 Basophils # 0.0 Nucleated Red Blood Cells # 0.0 Sodium Level 137 Potassium Level 4.0 Chloride Level 106 Carbon Dioxide Level 23 Anion Gap 12 Blood Urea Nitrogen 13 Creatinine 1.16 H Glucose Level 115 Calcium Level 8.4 Medications Medications Current Medications Miscellaneous Information 1 ea NOTE XX ; Start 03/03/17 at 15:30 Glucose (Glutose) 15 gm Q15M PRN PO DECREASED GLUCOSE; Start 03/03/17 at 15:30 Glucose (Glutose) 22.5 gm Q15M PRN PO DECREASED GLUCOSE; Start 03/03/17 at 15: 30 Dextrose (D50w Syringe) 25 ml Q15M PRN IV DECREASED GLUCOSE; Start 03/03/17 at 15:30 Dextrose (D50w Syringe) 50 ml Q15M PRN IV DECREASED GLUCOSE; Start 03/03/17 at 15:30 Glucagon (Glucagen) 1 mg Q15M PRN IM DECREASED GLUCOSE; Start 03/03/17 at 15:30 Glucose 15 gm 15 gm Q15M PRN BUCCAL DECREASED GLUCOSE; Start 03/03/17 at 15:30 Sodium Chloride (NS) 1,000 ml @ 100 mls/hr Q10H IV Last administered on t 21:45; Admin Dose 100 MLS/HR; Start 03/04/17 at 12:00 Diagnostic Test (Pha) (Accu-Chek) 1 ea 02 XX ; Start 03/05/17 at 02:00 Luba RAMOS Mar 05, 2017 08:16
[2017-03-05] MEDS: INSULIN ASPART [NOVOLOG] 3 ML PEN SC SCH ×4 (08:45→21:00)
[2017-03-05] MEDS ORDERED: SOD CHLORIDE 0.9% 500 ML IV ONE (09:30)
[2017-03-05] MEDS: ALLOPURINOL 100 MG TAB PO SCH (11:45)
[2017-03-05] MEDS: SOD CHLORIDE 0.9% 1,000 ML IV SCH ×2 (11:45→17:45)
[2017-03-05] MEDS: FOLIC ACID 1 MG TAB PO SCH (11:45)
[2017-03-05] MEDS ORDERED: DIGOXIN 500 MCG INJ IV ONE (12:00)
[2017-03-05] MEDS: ASPIRIN 325 MG TAB PO SCH (13:13)
[2017-03-05] MEDS: ENOXAPARIN 40 MG/0.4 ML SYG SC SCH (13:14)
[2017-03-05 14:36] LABS: THYROID STIMULATING HORMONE 0.583 MIU/L (0.465-4.680)
[2017-03-05] MEDS ORDERED: METOPROLOL 5 MG INJ IV PRN (16:00)
--- NOTE | 2017-03-05 16:13 | CONS ---
DATE OF ADMISSION: 03/05/2017 DATE OF CONSULTATION: 03/05/2017 CARDIOLOGY CONSULTATION REASON FOR CONSULTATION: Paroxysmal atrial fibrillation with rapid ventricular response. REQUESTING PHYSICIAN: Dr. Marty Kim HISTORY OF PRESENT ILLNESS: Ms. Mcqueen is a 71-year-old female with history of recurrent incarcerat ed incisional hernia and rectal prolapse who presented for and underwent incisional hernia repair wi th implantation of mesh, lysis of adhesions, and rectopexy. Postoperatively, the patient was admitt ed to the floor and was doing okay until today when the patient was noted to have the onset of tachy cardia. The patient underwent an EKG revealing atrial fibrillation with rapid ventricular response with rates as high as 130s to 140s. Given these findings, the patient was transferred to telemetry. Since arrival to telemetry, the patient has reverted back to sinus rhythm. The patient, at this t mellissa, denies chest pain, shortness of breath, has pain at the site of her surgery. PAST MEDICAL HISTORY: As above in HPI with the patient having a history of diabetes mellitus, some bradycardia on admit, and neuropathy. ALLERGIES: NO KNOWN DRUG ALLERGIES. MEDICATIONS CURRENTLY IN HOSPITAL: 1. Neurontin 300 mg at bedtime. 2. Lantus 15 mg subcutaneous daily. 3. Lovenox 40 mg subcutaneous daily. 4. Aspirin 325 mg daily. 5. Allopurinol 100 mg daily. 6. Folic acid 1 mg daily. 7. Warfarin p.r.n. 8. Insulin sliding scale. 9. IV fluid hydration at 100 mL an hour. SOCIAL HISTORY: No tobacco, ETOH, or illicit drug use. FAMILY HISTORY: No history of sudden cardiac or early CAD. REVIEW OF SYSTEMS: As above in HPI. CONSTITUTIONAL: No fevers, chills. PULMONARY: No current shortness of breath. CARDIOVASCULAR: Paroxysmal atrial fibrillation with rapid ventricular response. GASTROINTESTINAL: No vomiting. GENITOURINARY: No hematuria. MUSCULOSKELETAL: Degenerative joint disease. PSYCHIATRIC: The patient denies depression. NEUROLOGIC: No documented history of CVA. PHYSICAL EXAMINATION: VITAL SIGNS: Temperature 97.8, blood pressure most recently 97/61, pulse right now in the 70s, sinu s rhythm, saturating at 96%. GENERAL: The patient is alert, awake, in no acute distress. NECK: JVP approximately 8 to 9 cm water. CHEST: Fair air movement throughout. HEART: Regular rate and rhythm. Normal S1, S2, I/ systolic murmur, nondisplaced PMI. ABDOMEN: Positive bowel sounds, soft. EXTREMITIES: No pitting edema, 1+ pulses bilaterally posterior tibial. LABORATORIES: As above in HPI, with most recent from today, white count 10.2, hemoglobin 8.9, plate let count 182. Sodium 137, potassium 4.0, creatinine 1.1, BUN 13. TSH is 0.583, free T4 of 5.7, mallory th within normal limits. IMAGING STUDIES: As above in HPI. No further imaging studies for my review at this time. ECG: As stated earlier today at 9 in the morning atrial fibrillation with rapid ventricular respons e, rate of 165, normal axis, normal intervals, nonspecific ST and T-wave abnormalities diffusely, mallory rderline ST depressions lateral leads. IMPRESSION: 1. Paroxysmal atrial fibrillation with rapid ventricular response, now in sinus rhythm. 2. Abnormal electrocardiogram with ST depressions laterally during time of tachyarrhythmia. 3. Hypotension, borderline. 4. Postoperative status post treatment of rectal prolapse and repair of abdominal hernia. 5. Diabetes mellitus. 6. Anemia. RECOMMENDATIONS: 1. At this time, would maintain the patient on telemetry monitoring to follow rhythm and rate contr ol closely. 2. Would start the patient on baseline p.o. digoxin and additionally give the patient amiodarone p. o. at this time in attempt to maintain sinus rhythm as the patient may not be a great systemic antic oagulation candidate at this time. The patient is just postoperative. 3. Continue the patient's full dose aspirin at this time for prophylaxis against cardiovascular duke nts and low dose Lovenox. 4. Check a 2D echocardiogram to further assess patient's ejection fraction, wall motion, and any ma xander valve abnormalities. 5. Check serial EKGs to assess for any significant ongoing changes. EKG in the morning, EKG for co mplaints of chest pain or change in rhythm. 6. 2D echocardiogram to further assess patient's ejection fraction, wall motion, and any major abno rmalities. 7. Follow the patient's blood sugars closely with adjustment of insulin therapy as necessary. 8. Routine postoperative care. Thank you for allowing me to take part in the care of this patient. I will continue to follow along very closely with you with further recommendations to be made as the patient progresses through her inpatient hospital clinical course. Dictated By: BERNABE CARRASCO/SOFIYA Conf#: [id number] DID#: [id number] CC: MARTY KIM MD;*EndCC*
--- NOTE | 2017-03-05 17:58 | PN ---
Date/Time of Note Date/Time of Note DATE: 03/05/17 TIME: 17:54 Assessment/Plan VTE Prophylaxis VTE Prophylaxis Intervention: SCD's Lines/Catheters IV [facility]): Peripheral IV Urinary Cath still in place: No Assessment/Plan Chief Complaint/Hosp Course Patient was transferred to telemetry floor due to atrial fibrillation, patient was started on diet able to tolerate it well denies any nausea vomiting. ASSESSMENT AND PLAN: - Atrial fibrillation, Dr. Carter is following and cardiology consultation, continue digoxin digoxin amiodarone and metoprolol. Continue Lovenox - Recurrent incarcerated incisional hernia and rectal prolapse status post an open recurrent incarcerated incisional hernia repair with implantation of mesh and lysis of adhesions, status post laparoscopic converted to open rectopexy. Continue IV fluids. Continue to follow up surgical recommendation. Zofran p.r.n. for nausea, morphine as needed for pain Advance diet per surgery. - Diabetes mellitus type 2. Continue Lantus and NovoLog per mild sliding scale. - Hypertension. Continue to monitor blood pressure, hydralazine p.r.n. for systolic blood pressure above 170. Sequential compression devices for deep venous thrombosis prophylaxis. Further recommendations based on clinical course. Plan of care discussed with Dr. Harris. Problems: Exam/Review of Systems Vital Signs Vitals Vital Signs Date Time Temp Pulse Resp B/P Pulse Ox O2 Delivery O2 Flow Rate FiO2 03/05/17 16:18 82 03/05/17 12:11 97.8 20 97/61 96 03/05/17 08:45 Nasal Cannula 2.0 Intake and Output 03/04/17 03/04/17 03/05/17 15:00 23:00 07:00 Intake Total 1641 ml 1000 ml 1700 ml Output Total 800 ml 1200 ml Balance 1641 ml 200 ml 500 ml Exam Constitutional: alert, oriented Head: normocephalic Neck: supple Cardiovascular: nl pulses Gastrointestinal: other (Status post surgery), soft Extremities: normal pulses Neurological: nl mental status Results Result Diagram: 03/05/17 0420 03/05/17 0420 Results 24 hrs Laboratory Tests Test 03/04/17 20:27 03/05/17 04:20 03/05/17 08:41 03/05/17 11:53 Bedside Glucose 150 121 125 White Blood Count 10.2 # Red Blood Count 3.67 L Hemoglobin 8.9 L Hematocrit 28.8 L Mean Corpuscular Volume 78.5 L Mean Corpuscular Hemoglobin 24.3 L Mean Corpuscular Hemoglobin Concent 30.9 L Red Cell Distribution Width 16.9 H Platelet Count 182 Mean Platelet Volume 11.4 H Neutrophils % 85.5 H Lymphocytes % 8.2 L Monocytes % 4.5 Eosinophils % 1.0 Basophils % 0.2 Nucleated Red Blood Cells % 0.0 Neutrophils # 8.7 H Lymphocytes # 0.8 Monocytes # 0.5 Eosinophils # 0.1 Basophils # 0.0 Nucleated Red Blood Cells # 0.0 Sodium Level 137 Potassium Level 4.0 Chloride Level 106 Carbon Dioxide Level 23 Anion Gap 12 Blood Urea Nitrogen 13 Creatinine 1.16 H Glucose Level 115 Calcium Level 8.4 Thyroid Stimulating Hormone (TSH) 0.583 Thyroxine (T4) 5.7 Test 03/05/17 17:43 Bedside Glucose 122 Medications Medications Current Medications Miscellaneous Information 1 ea NOTE XX ; Start 03/03/17 at 15:30 Glucose (Glutose) 15 gm Q15M PRN PO DECREASED GLUCOSE; Start 03/03/17 at 15:30 Glucose (Glutose) 22.5 gm Q15M PRN PO DECREASED GLUCOSE; Start 03/03/17 at 15: 30 Dextrose (D50w Syringe) 25 ml Q15M PRN IV DECREASED GLUCOSE; Start 03/03/17 at 15:30 Dextrose (D50w Syringe) 50 ml Q15M PRN IV DECREASED GLUCOSE; Start 03/03/17 at 15:30 Glucagon (Glucagen) 1 mg Q15M PRN IM DECREASED GLUCOSE; Start 03/03/17 at 15:30 Glucose 15 gm 15 gm Q15M PRN BUCCAL DECREASED GLUCOSE; Start 03/03/17 at 15:30 Sodium Chloride (NS) 1,000 ml @ 100 mls/hr Q10H IV Last administered on t 11:45; Admin Dose 100 MLS/HR; Start 03/04/17 at 12:00 Diagnostic Test (Pha) (Accu-Chek) 1 ea 02 XX ; Start 03/05/17 at 02:00 Morphine Sulfate (morphine) 2 mg Q2H PRN IV PAIN; Start 03/05/17 at 08:30 Gabapentin (Neurontin) 300 mg HS PO ; Start 03/05/17 at 21:00 Allopurinol (Zyloprim) 100 mg DAILY PO Last administered on 03/05/17 11:45; Admin Dose 100 MG; Start 03/05/17 at 09:30 Folic Acid (Folic Acid) 1 mg DAILY PO Last administered on 03/05/17 11:45; Admin Dose 1 MG; Start 03/05/17 at 09:30 Insulin Glargine (Lantus) 15 unit DAILY@20 SC ; Start 03/05/17 at 20:00 Enoxaparin Sodium (Lovenox) 40 mg DAILY SC Last administered on 03/05/17 13:14 ; Admin Dose 40 MG; Start 03/05/17 at 12:00 Aspirin (Aspirin) 325 mg DAILY PO Last administered on 03/05/17 13:13; Admin Dose 325 MG; Start 03/05/17 at 12:00 Digoxin (Digoxin) 0.125 mg DAILY@13 PO ; Start 03/06/17 at 13:00 Metoprolol Tartrate (Lopressor) 5 mg Q4H PRN IV HR>110 Hold SBP<100; Start at 16:00 Amiodarone HCl (Cordarone) 200 mg TID PO ; Start 03/05/17 at 21:00 SHILA PRESSLEY Mar 05, 2017 17:58
[2017-03-05] MEDS: GABAPENTIN 300 MG CAP PO SCH (21:04)
[2017-03-05] MEDS: AMIODARONE 200 MG TAB PO SCH (21:05)
[2017-03-05] MEDS: INSULIN GLARGINE [LANtus] 3 ML PEN SC SCH (21:17)
[2017-03-05] MEDS: morphine 2 MG INJ IV PRN (22:33)
[2017-03-06] VITALS (10 sets, daily range): BP systolic 112–145; BP diastolic 59–74; PULSE 75–87; RESP 14–19
[2017-03-06] MEDS: SOD CHLORIDE 0.9% 1,000 ML IV SCH ×3 (04:00→14:00)
[2017-03-06 08:00] LABS: ADD SCAN DIFF NO
[2017-03-06] MEDS: INSULIN ASPART [NOVOLOG] 3 ML PEN SC SCH ×4 (08:00→21:00)
[2017-03-06 08:22] LABS: BASOPHILS % 0.3 % (0.0-2.0); EOSINOPHILS # 0.4 10^3/ul (0.0-0.5); EOSINOPHILS % 5.9 % (0.0-7.0); HEMATOCRIT 26.5 % (37.0-47.0); HEMOGLOBIN 8.2 g/dl (12.0-16.0); LYMPHOCYTES # 1.2 10^3/ul (0.8-2.9); LYMPHOCYTES % 16.2 % (15.0-51.0); MEAN CORPUSCULAR HEMOGLOBIN 24.1 pg (29.0-33.0); MEAN CORPUSCULAR HGB CONC 30.9 g/dl (32.0-37.0); MEAN CORPUSCULAR VOLUME 77.9 fl (82.0-101.0); MEAN PLATELET VOLUME 11.6 fl (7.4-10.4); MONOCYTE # 0.5 10^3/ul (0.3-0.9); MONOCYTES % 6.6 % (0.0-11.0); NEUTROPHIL # 5.1 10^3/ul (1.6-7.5); NEUTROPHILS % 70.6 % (39.0-77.0); PLATELET COUNT 174 10^3/UL (140-415); RED CELL DISTRIBUTION WIDTH 16.4 % (11.5-14.5); WHITE BLOOD COUNT 7.3 10^3/ul (4.8-10.8)
[2017-03-06] MEDS: AMIODARONE 200 MG TAB PO SCH ×3 (08:34→21:14)
[2017-03-06] MEDS: FOLIC ACID 1 MG TAB PO SCH (08:34)
[2017-03-06] MEDS: ASPIRIN 325 MG TAB PO SCH (08:34)
[2017-03-06] MEDS: ALLOPURINOL 100 MG TAB PO SCH (08:34)
[2017-03-06] MEDS: ENOXAPARIN 40 MG/0.4 ML SYG SC SCH (08:35)
[2017-03-06 09:18] LABS: CALCIUM 8.2 mg/dl (8.4-10.2); CREATININE 1.11 mg/dl (0.44-1.00)
[2017-03-06] MEDS: DIGOXIN 0.125 MG TAB PO SCH (13:22)
--- NOTE | 2017-03-06 18:43 | CONS ---
Date/Time of Note Date/Time of Note DATE: 03/06/17 TIME: 18:38 Assessment/Plan Assessment/Plan Chief Complaint/Hosp Course IMPRESSION: 1. Paroxysmal atrial fibrillation with rapid ventricular response, now in sinus rhythm and remains 2. Abnormal electrocardiogram with ST depressions laterally during time of tachyarrhythmia. 3. Hypotension, borderline. 4. Postoperative status post treatment of rectal prolapse and repair of abdominal hernia. 5. Diabetes mellitus. 6. Anemia. REcc: -Tele -serial ecg's -Continue asa -Start BB now that BP improved -Continue amio loading in attempt to maintain SR given post-op state and likely poor systemic anti-coag candidate -Continue insulin and follow BS closely -pain control Problems: Consultation Date/Type/Reason Admit Date/Time Mar 05, 2017 at 09:32 Initial Consult Date 03/05/2017 Type of Consultation: cardiology Reason for Consultation PAF Referring Provider: CHUY KIM MD Exam/Review of Systems Vital Signs Vitals Vital Signs Date Time Temp Pulse Resp B/P Pulse Ox O2 Delivery O2 Flow Rate FiO2 03/06/17 16:08 81 03/06/17 15:18 98.7 14 133/74 96 03/06/17 10:27 Nasal Cannula 2.0 Intake and Output 03/05/17 03/05/17 03/06/17 15:00 23:00 07:00 Intake Total 800 ml 940 ml Balance 800 ml 940 ml Exam Review of Systems: CONSTITUTIONAL: No fevers, chills. PULMONARY: No sob CARDIOVASCULAR: No chest pain/palpitations GASTROINTESTINAL: No nausea/vomiting. GENITOURINARY: No hematuria/dysuria. MUSCULOSKELETAL: No myagias/arthalgias. PSYCHIATRIC: The patient denies depression. NEUROLOGIC: No weakness Constitutional: alert Psych: no complaints Head: normocephalic Neck: jvd (9 cm water), supple Respiratory: diminished breath sounds (at bases/B) Cardiovascular: regular rate and rhythm Gastrointestinal: non-tender, soft Musculoskeletal: muscle tone (normal) Extremities: edema (none) Neurological: other Results Result Diagram: 03/06/17 0700 03/06/17 0700 Results 24 hrs Laboratory Tests Test 03/05/17 21:07 03/06/17 00:30 03/06/17 07:00 03/06/17 08:03 Bedside Glucose 113 95 Troponin I 0.096 0.089 White Blood Count 7.3 # Red Blood Count 3.40 L Hemoglobin 8.2 L Hematocrit 26.5 L Mean Corpuscular Volume 77.9 L Mean Corpuscular Hemoglobin 24.1 L Mean Corpuscular Hemoglobin Concent 30.9 L Red Cell Distribution Width 16.4 H Platelet Count 174 Mean Platelet Volume 11.6 H Neutrophils % 70.6 Lymphocytes % 16.2 Monocytes % 6.6 Eosinophils % 5.9 Basophils % 0.3 Nucleated Red Blood Cells % 0.0 Neutrophils # 5.1 Lymphocytes # 1.2 Monocytes # 0.5 Eosinophils # 0.4 Basophils # 0.0 Nucleated Red Blood Cells # 0.0 Sodium Level 135 Potassium Level 4.0 Chloride Level 105 Carbon Dioxide Level 25 Anion Gap 9 Blood Urea Nitrogen 18 Creatinine 1.11 H Glucose Level 82 Calcium Level 8.2 L Test 03/06/17 11:51 03/06/17 17:56 Bedside Glucose 109 138 Medications Medications Current Medications Miscellaneous Information 1 ea NOTE XX ; Start 03/03/17 at 15:30 Glucose (Glutose) 15 gm Q15M PRN PO DECREASED GLUCOSE; Start 03/03/17 at 15:30 Glucose (Glutose) 22.5 gm Q15M PRN PO DECREASED GLUCOSE; Start 03/03/17 at 15: 30 Dextrose (D50w Syringe) 25 ml Q15M PRN IV DECREASED GLUCOSE; Start 03/03/17 at 15:30 Dextrose (D50w Syringe) 50 ml Q15M PRN IV DECREASED GLUCOSE; Start 03/03/17 at 15:30 Glucagon (Glucagen) 1 mg Q15M PRN IM DECREASED GLUCOSE; Start 03/03/17 at 15:30 Glucose 15 gm 15 gm Q15M PRN BUCCAL DECREASED GLUCOSE; Start 03/03/17 at 15:30 Sodium Chloride (NS) 1,000 ml @ 100 mls/hr Q10H IV Last administered on 08:36; Admin Dose 100 MLS/HR; Start 03/04/17 at 12:00 Diagnostic Test (Pha) (Accu-Chek) 1 ea 02 XX ; Start 03/05/17 at 02:00 Morphine Sulfate (morphine) 2 mg Q2H PRN IV PAIN Last administered on 22:33; Admin Dose 2 MG; Start 03/05/17 at 08:30 Gabapentin (Neurontin) 300 mg HS PO Last administered on 03/05/17 21:04; Admin Dose 300 MG; Start 03/05/17 at 21:00 Allopurinol (Zyloprim) 100 mg DAILY PO Last administered on 03/06/17 08:34; Admin Dose 100 MG; Start 03/05/17 at 09:30 Folic Acid (Folic Acid) 1 mg DAILY PO Last administered on 03/06/17 08:34; Admin Dose 1 MG; Start 03/05/17 at 09:30 Insulin Glargine (Lantus) 15 unit DAILY@20 SC Last administered on 03/05/17 21 :17; Admin Dose 15 UNIT; Start 03/05/17 at 20:00 Enoxaparin Sodium (Lovenox) 40 mg DAILY SC Last administered on 03/06/17 08:35 ; Admin Dose 40 MG; Start 03/05/17 at 12:00 Aspirin (Aspirin) 325 mg DAILY PO Last administered on 03/06/17 08:34; Admin Dose 325 MG; Start 03/05/17 at 12:00 Digoxin (Digoxin) 0.125 mg DAILY@13 PO Last administered on 03/06/17 13:22; Admin Dose 0.125 MG; Start 03/06/17 at 13:00 Metoprolol Tartrate (Lopressor) 5 mg Q4H PRN IV HR>110 Hold SBP<100; Start at 16:00 Amiodarone HCl (Cordarone) 200 mg TID PO Last administered on 03/06/17 13:22; Admin Dose 200 MG; Start 03/05/17 at 21:00 BERNABE SUAREZ Mar 06, 2017 18:42
--- NOTE | 2017-03-06 19:30 | RADRPT ---
Echocardiogram Report Patient Name: MEGHA DÍAZ Gender: Female Date: 1945 Study Date: 06-Mar-2017 Supervisor Channel Process: Nicole Freeman [facility] Location: [id number] Ref. Physician: CHUY KIM Quality: Adequate Procedures: Transthoracic echocardiogram with complete 2D, M-Mode, and doppler examination. Indications: Evaluate Left Ventricular function. 2D/M Mode Doppler Measurement Value Normal Ranges Measurement Value Normal Ranges LVIDd 2D 5.5 3.5 - 5.6 cm AV Peak Dawson 1.4 m/sec LVIDs 2D 3.0 2.1 - 4.1 cm AV Peak PG 8.0 mmHg FS 2D 45.0 % LVOT Peak Dawson 0.9 m/sec LVPWd 2D 1.0 0.6 - 1.1 cm LVOT Peak PG 3.0 mmHg IVSd 2D 1.1 0.6 - 1.1 cm MV E Peak Dawson 0.8 m/sec IVS/LVPW 2D 1.1 MV A Peak Dawson 0.7 m/sec AoR Diam 2D 3.0 2.0 - 3.7 cm MV E/A 1.3 LA/Ao 2D 1 0 - 1 MV Decel Time 169 msec EDV 2D 165.0 cm3 MV E/A 1.3 ESV 2D 27.5 cm3 TR Peak Dawson 3.2 m/sec LA Dimen 2D 3.4 2.3 - 4.0 cm TR Peak PG 42.0 mmHg RVSP 57.0 mmHg Findings Left Ventricle: Normal left ventricular cavity size. Mild concentric left ventricular hypertrophy. Mild global left ventricular systolic dysfunction. Ejection fraction is visually estimated at 4045 %. Right Ventricle: Normal right ventricular size. Normal right ventricular systolic function. Left Atrium: The left atrium is normal in size. Right Atrium: The right atrium is normal in size. Mitral Valve: Normal appearance and function of the mitral valve with trace physiologic regurgitation. Aortic Valve: No significant aortic stenosis or insufficiency. Aortic cusps appear mildly calcified. Tricuspid Valve: Normal appearance of the tricuspid valve. Estimated peak PA systolic pressure 57 mmHg. There is mild to moderate tricuspid regurgitation. Pulmonic Valve: Pulmonic valve not well visualized. There is trace pulmonic regurgitation. Pericardium: Normal pericardium with no significant pericardial effusion. Aorta: Normal aortic root. IVC: Dilated IVC without respiratory collapse consistent with elevated right atrial pressure. Conclusions 1.Normal left ventricular cavity size. Mild concentric left ventricular hypertrophy. Mild global left ventricular systolic dysfunction. Ejection fraction is visually estimated at 40-45 %. 2.Normal appearance and function of the mitral valve with trace physiologic regurgitation. 3.Normal appearance of the tricuspid valve. Estimated peak PA systolic pressure 57 mmHg. There is mild to moderate tricuspid regurgitation. 4.Pulmonic valve not well visualized. There is trace pulmonic regurgitation. Electronically Signed By: Grey Carter 06-Mar-2017 19:29:34 -0700 Patient Name: MEGHA DÍAZ Study Date: 06-Mar-2017 [id number]
--- NOTE | 2017-03-06 20:52 | PN ---
Date/Time of Note Date/Time of Note DATE: 03/06/17 TIME: 20:51 Assessment/Plan VTE Prophylaxis VTE Prophylaxis Intervention: other Lines/Catheters [facility] Type (from [facility] Peripheral IV Urinary Cath still in place: No Assessment/Plan Assessment/Plan - Atrial fibrillation, Dr. Carter is following and cardiology consultation, continue digoxin digoxin amiodarone and metoprolol. Continue Lovenox - Recurrent incarcerated incisional hernia and rectal prolapse status post an open recurrent incarcerated incisional hernia repair with implantation of mesh and lysis of adhesions, status post laparoscopic converted to open rectopexy. Continue IV fluids. Continue to follow up surgical recommendation. Zofran p.r.n. for nausea, morphine as needed for pain Advance diet per surgery. - Diabetes mellitus type 2. Continue Lantus and NovoLog per mild sliding scale. - Hypertension. Continue to monitor blood pressure, hydralazine p.r.n. for systolic blood pressure above 170. Sequential compression devices for deep venous thrombosis prophylaxis. Further recommendations based on clinical course. Plan of care discussed with Dr. Harris. Subjective 24 Hr Interval Summary Respiratory: no complaints Cardiovascular: no complaints Gastrointestinal: no complaints Musculoskeletal: no complaints Exam/Review of Systems Vital Signs Vitals Vital Signs Date Time Temp Pulse Resp B/P Pulse Ox O2 Delivery O2 Flow Rate FiO2 03/06/17 20:32 75 03/06/17 20:32 98.5 17 145/65 98 03/06/17 10:27 Nasal Cannula 2.0 Intake and Output 03/05/17 03/05/17 03/06/17 15:00 23:00 07:00 Intake Total 800 ml 940 ml Balance 800 ml 940 ml Exam Constitutional: alert, oriented ENMT: nl external ears & nose Respiratory: clear to auscultation, normal air movement Cardiovascular: nl pulses Gastrointestinal: non-tender, soft Musculoskeletal: nl extremities to inspection Extremities: normal pulses Results Result Diagram: 03/06/17 0700 03/06/17 0700 Results 24 hrs Laboratory Tests Test 03/05/17 21:07 03/06/17 00:30 03/06/17 07:00 03/06/17 08:03 Bedside Glucose 113 95 Troponin I 0.096 0.089 White Blood Count 7.3 # Red Blood Count 3.40 L Hemoglobin 8.2 L Hematocrit 26.5 L Mean Corpuscular Volume 77.9 L Mean Corpuscular Hemoglobin 24.1 L Mean Corpuscular Hemoglobin Concent 30.9 L Red Cell Distribution Width 16.4 H Platelet Count 174 Mean Platelet Volume 11.6 H Neutrophils % 70.6 Lymphocytes % 16.2 Monocytes % 6.6 Eosinophils % 5.9 Basophils % 0.3 Nucleated Red Blood Cells % 0.0 Neutrophils # 5.1 Lymphocytes # 1.2 Monocytes # 0.5 Eosinophils # 0.4 Basophils # 0.0 Nucleated Red Blood Cells # 0.0 Sodium Level 135 Potassium Level 4.0 Chloride Level 105 Carbon Dioxide Level 25 Anion Gap 9 Blood Urea Nitrogen 18 Creatinine 1.11 H Glucose Level 82 Calcium Level 8.2 L Test 03/06/17 11:51 03/06/17 17:56 Bedside Glucose 109 138 Medications Medications Current Medications Miscellaneous Information 1 ea NOTE XX ; Start 03/03/17 at 15:30 Glucose (Glutose) 15 gm Q15M PRN PO DECREASED GLUCOSE; Start 03/03/17 at 15:30 Glucose (Glutose) 22.5 gm Q15M PRN PO DECREASED GLUCOSE; Start 03/03/17 at 15: 30 Dextrose (D50w Syringe) 25 ml Q15M PRN IV DECREASED GLUCOSE; Start 03/03/17 at 15:30 Dextrose (D50w Syringe) 50 ml Q15M PRN IV DECREASED GLUCOSE; Start 03/03/17 at 15:30 Glucagon (Glucagen) 1 mg Q15M PRN IM DECREASED GLUCOSE; Start 03/03/17 at 15:30 Glucose 15 gm 15 gm Q15M PRN BUCCAL DECREASED GLUCOSE; Start 03/03/17 at 15:30 Sodium Chloride (NS) 1,000 ml @ 100 mls/hr Q10H IV Last administered on 08:36; Admin Dose 100 MLS/HR; Start 03/04/17 at 12:00 Diagnostic Test (Pha) (Accu-Chek) 1 ea 02 XX ; Start 03/05/17 at 02:00 Morphine Sulfate (morphine) 2 mg Q2H PRN IV PAIN Last administered on 22:33; Admin Dose 2 MG; Start 03/05/17 at 08:30 Gabapentin (Neurontin) 300 mg HS PO Last administered on 03/05/17 21:04; Admin Dose 300 MG; Start 03/05/17 at 21:00 Allopurinol (Zyloprim) 100 mg DAILY PO Last administered on 03/06/17 08:34; Admin Dose 100 MG; Start 03/05/17 at 09:30 Folic Acid (Folic Acid) 1 mg DAILY PO Last administered on 03/06/17 08:34; Admin Dose 1 MG; Start 03/05/17 at 09:30 Insulin Glargine (Lantus) 15 unit DAILY@20 SC Last administered on 03/05/17 21 :17; Admin Dose 15 UNIT; Start 03/05/17 at 20:00 Enoxaparin Sodium (Lovenox) 40 mg DAILY SC Last administered on 03/06/17 08:35 ; Admin Dose 40 MG; Start 03/05/17 at 12:00 Aspirin (Aspirin) 325 mg DAILY PO Last administered on 03/06/17 08:34; Admin Dose 325 MG; Start 03/05/17 at 12:00 Digoxin (Digoxin) 0.125 mg DAILY@13 PO Last administered on 03/06/17 13:22; Admin Dose 0.125 MG; Start 03/06/17 at 13:00 Metoprolol Tartrate (Lopressor) 5 mg Q4H PRN IV HR>110 Hold SBP<100; Start at 16:00 Amiodarone HCl (Cordarone) 200 mg TID PO Last administered on 03/06/17 13:22; Admin Dose 200 MG; Start 03/05/17 at 21:00 Lisinopril (Zestril) 2.5 mg DAILY PO ; Start 03/07/17 at 09:00 Simethicone (Mylicon) 80 mg BID PRN PO DISTENSION/GAS/BLOATING; Start 03/06/17 at 21:00; Status UNV Pantoprazole (Protonix Tab) 40 mg DAILY@06 PO ; Start 03/06/17 at 21:00; Status UNV CHRISTIANO LOVETT Mar 06, 2017 20:52
[2017-03-06] MEDS: GABAPENTIN 300 MG CAP PO SCH (21:14)
[2017-03-06] MEDS: PANTOPRAZOLE (EC) 40 MG TAB PO SCH (21:15)
[2017-03-06] MEDS: INSULIN GLARGINE [LANtus] 3 ML PEN SC SCH (21:16)
[2017-03-07] VITALS (12 sets, daily range): BP systolic 115–147; BP diastolic 53–70; PULSE 67–84; RESP 16–20
[2017-03-07] MEDS: ACCU-CHEK XX SCH (00:48)
[2017-03-07] MEDS: PANTOPRAZOLE (EC) 40 MG TAB PO SCH (06:12)
--- NOTE | 2017-03-07 07:22 | PN ---
DATE: 03/06/2017 FOLLOWUP PROGRESS NOTE Postop laparotomy and repair of the ventral incarcerated incisional hernia, recurrent and also fixation of the prolapse of the rectum by rectopexy. Postop day #2. SUBJECTIVE: Complains of some pain, some nausea, no vomiting. No bowel movement. Has passed a little amount of gas. OBJECTIVE: GENERAL: Awake, alert, oriented. VITAL SIGNS: Temperature 98.3, heart rate 77, respiration 14, blood pressure 137/66, saturation 95% on 2 liters nasal cannula. LABORATORY DATA: WBC 7300 with 70% segmented, hemoglobin is 8.2. On admission it was 11, hematocrit was 26.5 on admission was 34.8. Chemistry: Sodium, potassium normal. BUN 18, creatinine 1.11, slightly elevated. Dressing was intact. ABDOMEN: Slightly distended, slightly tender. Bowel sounds 2+/4+. EXTREMITIES: Legs no calf tenderness. ASSESSMENT: Status post laparotomy, rectopexy and repair of the incarcerated ventral hernia recurrent. Postop day #2 the patient is currently stable. Last night they had to transfer the patient from the floor to the telemetry because of the atrial fibrillation but now today the patient has converted to normal sinus rhythm. PLAN: The plan is to get the patient out of bed to walk around, continue current care. incentive spirometry. Dictated By: KAYE AGUILAR/SOFIYA Conf#: [id number] DID#: [id number] MTDD
[2017-03-07] MEDS: HYDROCODONE/APAP (5/325) TAB PO PRN ×2 (07:39→17:20)
[2017-03-07 07:44] LABS: ADD SCAN DIFF NO
[2017-03-07 07:55] LABS: BASOPHILS % 0.2 % (0.0-2.0); EOSINOPHILS # 0.4 10^3/ul (0.0-0.5); EOSINOPHILS % 5.3 % (0.0-7.0); HEMOGLOBIN 9.2 g/dl (12.0-16.0); LYMPHOCYTES % 15.7 % (15.0-51.0); MEAN CORPUSCULAR HEMOGLOBIN 24.1 pg (29.0-33.0); MEAN CORPUSCULAR HGB CONC 31.7 g/dl (32.0-37.0); MEAN CORPUSCULAR VOLUME 76.1 fl (82.0-101.0); MEAN PLATELET VOLUME 11.1 fl (7.4-10.4); MONOCYTE # 0.4 10^3/ul (0.3-0.9); MONOCYTES % 6.6 % (0.0-11.0); NEUTROPHIL # 4.8 10^3/ul (1.6-7.5); NEUTROPHILS % 71.7 % (39.0-77.0); PLATELET COUNT 206 10^3/UL (140-415); RED BLOOD COUNT 3.81 10^6/ul (4.20-5.40); RED CELL DISTRIBUTION WIDTH 15.9 % (11.5-14.5); WHITE BLOOD COUNT 6.6 10^3/ul (4.8-10.8)
[2017-03-07] MEDS: INSULIN ASPART [NOVOLOG] 3 ML PEN SC SCH ×4 (08:00→21:00)
[2017-03-07 08:24] LABS: CALCIUM 9.1 mg/dl (8.4-10.2); CREATININE 0.94 mg/dl (0.44-1.00); POTASSIUM 3.7 mmol/L (3.5-5.1)
[2017-03-07] MEDS ORDERED: LIDOCAINE 1% (MPF) 5 ML VIAL SC ONE (08:30)
[2017-03-07] MEDS: ASPIRIN 325 MG TAB PO SCH (08:37)
[2017-03-07] MEDS: LISINOPRIL 5 MG TAB PO SCH (08:37)
[2017-03-07] MEDS: ALLOPURINOL 100 MG TAB PO SCH (08:37)
[2017-03-07] MEDS: FOLIC ACID 1 MG TAB PO SCH (08:37)
[2017-03-07] MEDS: AMIODARONE 200 MG TAB PO SCH ×3 (08:37→22:30)
[2017-03-07] MEDS: ENOXAPARIN 40 MG/0.4 ML SYG SC SCH (08:38)
--- NOTE | 2017-03-07 08:57 | PN ---
Date/Time of Note Date/Time of Note DATE: 03/07/17 TIME: 08:56 Assessment/Plan VTE Prophylaxis VTE Prophylaxis Intervention: SCD's Lines/Catheters [facility] Type [facility] Peripheral IV Urinary Cath still in place: No Assessment/Plan Chief Complaint/Hosp Course s/p lap converted to open rectopexy and incisional hernia repair Problems: Assessment/Plan had bm dc home Subjective 24 Hr Interval Summary Free Text/Dictation doing well, had bm Exam/Review of Systems Vital Signs Vitals Vital Signs Date Time Temp Pulse Resp B/P Pulse Ox O2 Delivery O2 Flow Rate FiO2 03/07/17 08:29 73 03/07/17 07:40 98.6 16 145/68 95 03/06/17 10:27 Nasal Cannula 2.0 Intake and Output 03/06/17 03/06/17 03/07/17 15:00 23:00 07:00 Intake Total 500 ml 400 ml Balance 500 ml 400 ml Exam c/d/i Results Result Diagram: 03/07/17 0555 03/07/17 0555 Results 24 hrs Laboratory Tests Test 03/06/17 11:51 03/06/17 17:56 03/06/17 21:12 03/07/17 05:55 Bedside Glucose 109 138 113 White Blood Count 6.6 Red Blood Count 3.81 L Hemoglobin 9.2 L Hematocrit 29.0 L Mean Corpuscular Volume 76.1 L Mean Corpuscular Hemoglobin 24.1 L Mean Corpuscular Hemoglobin Concent 31.7 L Red Cell Distribution Width 15.9 H Platelet Count 206 Mean Platelet Volume 11.1 H Neutrophils % 71.7 Lymphocytes % 15.7 Monocytes % 6.6 Eosinophils % 5.3 Basophils % 0.2 Nucleated Red Blood Cells % 0.0 Neutrophils # 4.8 Lymphocytes # 1.0 Monocytes # 0.4 Eosinophils # 0.4 Basophils # 0.0 Nucleated Red Blood Cells # 0.0 Sodium Level 137 Potassium Level 3.7 Chloride Level 105 Carbon Dioxide Level 22 Anion Gap 14 Blood Urea Nitrogen 15 Creatinine 0.94 Glucose Level 92 Calcium Level 9.1 Test 03/07/17 08:31 Bedside Glucose 101 Medications Medications Current Medications Miscellaneous Information 1 ea NOTE XX ; Start 03/03/17 at 15:30 Glucose (Glutose) 15 gm Q15M PRN PO DECREASED GLUCOSE; Start 03/03/17 at 15:30 Glucose (Glutose) 22.5 gm Q15M PRN PO DECREASED GLUCOSE; Start 03/03/17 at 15: 30 Dextrose (D50w Syringe) 25 ml Q15M PRN IV DECREASED GLUCOSE; Start 03/03/17 at 15:30 Dextrose (D50w Syringe) 50 ml Q15M PRN IV DECREASED GLUCOSE; Start 03/03/17 at 15:30 Glucagon (Glucagen) 1 mg Q15M PRN IM DECREASED GLUCOSE; Start 03/03/17 at 15:30 Glucose 15 gm 15 gm Q15M PRN BUCCAL DECREASED GLUCOSE; Start 03/03/17 at 15:30 Sodium Chloride (NS) 1,000 ml @ 100 mls/hr Q10H IV Last administered on 08:36; Admin Dose 100 MLS/HR; Start 03/04/17 at 12:00 Diagnostic Test (Pha) (Accu-Chek) 1 ea 02 XX ; Start 03/05/17 at 02:00 Morphine Sulfate (morphine) 2 mg Q2H PRN IV PAIN Last administered on 22:33; Admin Dose 2 MG; Start 03/05/17 at 08:30 Gabapentin (Neurontin) 300 mg HS PO Last administered on 03/06/17 21:14; Admin Dose 300 MG; Start 03/05/17 at 21:00 Allopurinol (Zyloprim) 100 mg DAILY PO Last administered on 03/07/17 08:37; Admin Dose 100 MG; Start 03/05/17 at 09:30 Folic Acid (Folic Acid) 1 mg DAILY PO Last administered on 03/07/17 08:37; Admin Dose 1 MG; Start 03/05/17 at 09:30 Insulin Glargine (Lantus) 15 unit DAILY@20 SC Last administered on 03/06/17 21 :16; Admin Dose 15 UNIT; Start 03/05/17 at 20:00 Enoxaparin Sodium (Lovenox) 40 mg DAILY SC Last administered on 03/07/17 08:38 ; Admin Dose 40 MG; Start 03/05/17 at 12:00 Aspirin (Aspirin) 325 mg DAILY PO Last administered on 03/07/17 08:37; Admin Dose 325 MG; Start 03/05/17 at 12:00 Digoxin (Digoxin) 0.125 mg DAILY@13 PO Last administered on 03/06/17 13:22; Admin Dose 0.125 MG; Start 03/06/17 at 13:00 Metoprolol Tartrate (Lopressor) 5 mg Q4H PRN IV HR>110 Hold SBP<100; Start at 16:00 Amiodarone HCl (Cordarone) 200 mg TID PO Last administered on 03/07/17 08:37; Admin Dose 200 MG; Start 03/05/17 at 21:00 Lisinopril (Zestril) 2.5 mg DAILY PO Last administered on 03/07/17 08:37; Admin Dose 2.5 MG; Start 03/07/17 at 09:00 Simethicone (Mylicon) 80 mg BID PRN PO DISTENSION/GAS/BLOATING Last administered on 03/06/17 21:15; Admin Dose 80 MG; Start 03/06/17 at 21:00 Pantoprazole (Protonix Tab) 40 mg DAILY@06 PO Last administered on 03/07/17 06 :12; Admin Dose 40 MG; Start 03/06/17 at 21:00 Acetaminophen/ Hydrocodone Bitart ([place] (5/325)) 1 tab Q4H PRN PO Pain Last administered on 03/07/17 07:39; Admin Dose 2 TAB; Start 03/07/17 at 07:30 Luba RAMOS Mar 07, 2017 08:57
--- NOTE | 2017-03-07 09:07 | CONS ---
Date/Time of Note Date/Time of Note DATE: 03/07/17 TIME: 09:05 Assessment/Plan Assessment/Plan Additional Assessment/Plan 1. Paroxysmal atrial fibrillation with rapid ventricular response, now in sinus rhythm and remains - STABLE. 2. Abnormal electrocardiogram with ST depressions laterally during time of tachyarrhythmia- now converted to sinus. 3. Hypotension, borderline - BP improved. 4. Postoperative status post treatment of rectal prolapse and repair of abdominal hernia- surgical team follows. 5. Diabetes mellitus - on meds, will keep euglycemic. 6. Anemia- no active bleed now. Consultation Date/Type/Reason Admit Date/Time Mar 05, 2017 at 09:32 Initial Consult Date Type of Consultation: cardiology Referring Provider: CHUY KIM MD 24 HR Interval Summary Free Text/Dictation NO acute events - BP in good range - no CP - will monitor. ROS: No fever, no chills, no nausea, no vomiting, no diarrhea/constipation No recent weight changes No chest pain, no PND, no orthopnea No dizziness, blurred vision No thirst, no heat or cold intolerance Exam/Review of Systems Vital Signs Vitals Vital Signs Date Time Temp Pulse Resp B/P Pulse Ox O2 Delivery O2 Flow Rate FiO2 03/07/17 08:29 73 03/07/17 07:40 98.6 16 145/68 95 03/06/17 10:27 Nasal Cannula 2.0 Intake and Output 03/06/17 03/06/17 03/07/17 14:59 22:59 06:59 Intake Total 500 ml 400 ml Balance 500 ml 400 ml Exam General: WN/WD/NAD, AOx 2-3 HEENT: Unicetric/atraumatic/EOMI (follow commands) NECK: JVD elevated, no thyromegaly Lymph: no lymphadenopathy HEART: regular with no S3, II/ systolic murmur at apex LUNGS: Coarse sounds ABD: soft, NT, ND, +BS, POST-op : Intact Neuro: non focal SKIN: chronic changes EXT: trace edema Results Result Diagram: 03/07/17 0555 03/07/17 0555 Results 24 hrs Laboratory Tests Test 03/06/17 11:51 03/06/17 17:56 03/06/17 21:12 03/07/17 05:55 Bedside Glucose 109 138 113 White Blood Count 6.6 Red Blood Count 3.81 L Hemoglobin 9.2 L Hematocrit 29.0 L Mean Corpuscular Volume 76.1 L Mean Corpuscular Hemoglobin 24.1 L Mean Corpuscular Hemoglobin Concent 31.7 L Red Cell Distribution Width 15.9 H Platelet Count 206 Mean Platelet Volume 11.1 H Neutrophils % 71.7 Lymphocytes % 15.7 Monocytes % 6.6 Eosinophils % 5.3 Basophils % 0.2 Nucleated Red Blood Cells % 0.0 Neutrophils # 4.8 Lymphocytes # 1.0 Monocytes # 0.4 Eosinophils # 0.4 Basophils # 0.0 Nucleated Red Blood Cells # 0.0 Sodium Level 137 Potassium Level 3.7 Chloride Level 105 Carbon Dioxide Level 22 Anion Gap 14 Blood Urea Nitrogen 15 Creatinine 0.94 Glucose Level 92 Calcium Level 9.1 Test 03/07/17 08:31 Bedside Glucose 101 Medications Medications Current Medications Miscellaneous Information 1 ea NOTE XX ; Start 03/03/17 at 15:30 Glucose (Glutose) 15 gm Q15M PRN PO DECREASED GLUCOSE; Start 03/03/17 at 15:30 Glucose (Glutose) 22.5 gm Q15M PRN PO DECREASED GLUCOSE; Start 03/03/17 at 15: 30 Dextrose (D50w Syringe) 25 ml Q15M PRN IV DECREASED GLUCOSE; Start 03/03/17 at 15:30 Dextrose (D50w Syringe) 50 ml Q15M PRN IV DECREASED GLUCOSE; Start 03/03/17 at 15:30 Glucagon (Glucagen) 1 mg Q15M PRN IM DECREASED GLUCOSE; Start 03/03/17 at 15:30 Glucose 15 gm 15 gm Q15M PRN BUCCAL DECREASED GLUCOSE; Start 03/03/17 at 15:30 Sodium Chloride (NS) 1,000 ml @ 100 mls/hr Q10H IV Last administered on 08:36; Admin Dose 100 MLS/HR; Start 03/04/17 at 12:00 Diagnostic Test (Pha) (Accu-Chek) 1 ea 02 XX ; Start 03/05/17 at 02:00 Morphine Sulfate (morphine) 2 mg Q2H PRN IV PAIN Last administered on 22:33; Admin Dose 2 MG; Start 03/05/17 at 08:30 Gabapentin (Neurontin) 300 mg HS PO Last administered on 03/06/17 21:14; Admin Dose 300 MG; Start 03/05/17 at 21:00 Allopurinol (Zyloprim) 100 mg DAILY PO Last administered on 03/07/17 08:37; Admin Dose 100 MG; Start 03/05/17 at 09:30 Folic Acid (Folic Acid) 1 mg DAILY PO Last administered on 03/07/17 08:37; Admin Dose 1 MG; Start 03/05/17 at 09:30 Insulin Glargine (Lantus) 15 unit DAILY@20 SC Last administered on 03/06/17 21 :16; Admin Dose 15 UNIT; Start 03/05/17 at 20:00 Enoxaparin Sodium (Lovenox) 40 mg DAILY SC Last administered on 03/07/17 08:38 ; Admin Dose 40 MG; Start 03/05/17 at 12:00 Aspirin (Aspirin) 325 mg DAILY PO Last administered on 03/07/17 08:37; Admin Dose 325 MG; Start 03/05/17 at 12:00 Digoxin (Digoxin) 0.125 mg DAILY@13 PO Last administered on 03/06/17 13:22; Admin Dose 0.125 MG; Start 03/06/17 at 13:00 Metoprolol Tartrate (Lopressor) 5 mg Q4H PRN IV HR>110 Hold SBP<100; Start at 16:00 Amiodarone HCl (Cordarone) 200 mg TID PO Last administered on 03/07/17 08:37; Admin Dose 200 MG; Start 03/05/17 at 21:00 Lisinopril (Zestril) 2.5 mg DAILY PO Last administered on 03/07/17 08:37; Admin Dose 2.5 MG; Start 03/07/17 at 09:00 Simethicone (Mylicon) 80 mg BID PRN PO DISTENSION/GAS/BLOATING Last administered on 03/06/17 21:15; Admin Dose 80 MG; Start 03/06/17 at 21:00 Pantoprazole (Protonix Tab) 40 mg DAILY@06 PO Last administered on 03/07/17 06 :12; Admin Dose 40 MG; Start 03/06/17 at 21:00 Acetaminophen/ Hydrocodone Bitart ([place] (5/325)) 1 tab Q4H PRN PO Pain Last administered on 6/23/17at 07:39; Admin Dose 2 TAB; Start 03/07/17 at 07:30 ALLY ZAMORANO MD Mar 07, 2017 09:07
--- NOTE | 2017-03-07 10:11 | RADRPT ---
Vent Rate: 80 bpm RR Interval: 0 msec ID Interval: 130 msec QRS Duration: 88 msec QT Interval: 370 msec QTC Interval: 426 msec P-R-T [place]: 35 - 58 - 61 degrees Normal sinus rhythm Nonspecific ST abnormality Abnormal ECG Electronically Signed By: Jayjay Bronson [id number]
[2017-03-07] MEDS: SOD CHLORIDE 0.9% 1,000 ML IV SCH ×2 (11:49)
[2017-03-07] MEDS: DIGOXIN 0.125 MG TAB PO SCH (14:27)
--- NOTE | 2017-03-07 17:07 | PN ---
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 ASSESSMENT AND PLAN: -Paroxysmal atrial fibrillation with rapid ventricular response. Dr. Carter is following and cardiology consultation, continue digoxin amiodarone and metoprolol. Continue Lovenox - Recurrent incarcerated incisional hernia and rectal prolapse status post an open recurrent incarcerated incisional hernia repair with implantation of mesh and lysis of adhesions, status post laparoscopic converted to open rectopexy. Continue IV fluids. Continue to follow up surgical recommendation. Zofran p.r.n. for nausea, morphine as needed for pain Advance diet per surgery. - Diabetes mellitus type 2. Continue Lantus and NovoLog per mild sliding scale. - Hypertension. Continue to monitor blood pressure, hydralazine p.r.n. for systolic blood pressure above 170. Sequential compression devices for deep venous thrombosis prophylaxis. Further recommendations based on clinical course. Plan of care discussed with Dr. Harris. Problems: Exam/Review of Systems Vital Signs Vitals Vital Signs Date Time Temp Pulse Resp B/P Pulse Ox O2 Delivery O2 Flow Rate FiO2 03/07/17 16:54 84 03/07/17 15:45 98.5 16 134/66 97 03/06/17 10:27 Nasal Cannula 2.0 Intake and Output 03/06/17 03/06/17 03/07/17 15:00 23:00 07:00 Intake Total 500 ml 400 ml Balance 500 ml 400 ml Exam Constitutional: alert, oriented Head: normocephalic Neck: supple Cardiovascular: nl pulses Gastrointestinal: other (Status post surgery), soft Extremities: normal pulses Neurological: nl mental status Results Result Diagram: 03/07/17 0555 03/07/17 0555 Results 24 hrs Laboratory Tests Test 03/06/17 17:56 03/06/17 21:12 03/07/17 05:55 03/07/17 08:31 Bedside Glucose 138 113 101 White Blood Count 6.6 Red Blood Count 3.81 L Hemoglobin 9.2 L Hematocrit 29.0 L Mean Corpuscular Volume 76.1 L Mean Corpuscular Hemoglobin 24.1 L Mean Corpuscular Hemoglobin Concent 31.7 L Red Cell Distribution Width 15.9 H Platelet Count 206 Mean Platelet Volume 11.1 H Neutrophils % 71.7 Lymphocytes % 15.7 Monocytes % 6.6 Eosinophils % 5.3 Basophils % 0.2 Nucleated Red Blood Cells % 0.0 Neutrophils # 4.8 Lymphocytes # 1.0 Monocytes # 0.4 Eosinophils # 0.4 Basophils # 0.0 Nucleated Red Blood Cells # 0.0 Sodium Level 137 Potassium Level 3.7 Chloride Level 105 Carbon Dioxide Level 22 Anion Gap 14 Blood Urea Nitrogen 15 Creatinine 0.94 Glucose Level 92 Calcium Level 9.1 Test 03/07/17 11:44 03/07/17 16:44 Bedside Glucose 122 105 Medications Medications Current Medications Miscellaneous Information 1 ea NOTE XX ; Start 03/03/17 at 15:30 Glucose (Glutose) 15 gm Q15M PRN PO DECREASED GLUCOSE; Start 03/03/17 at 15:30 Glucose (Glutose) 22.5 gm Q15M PRN PO DECREASED GLUCOSE; Start 03/03/17 at 15: 30 Dextrose (D50w Syringe) 25 ml Q15M PRN IV DECREASED GLUCOSE; Start 03/03/17 at 15:30 Dextrose (D50w Syringe) 50 ml Q15M PRN IV DECREASED GLUCOSE; Start 03/03/17 at 15:30 Glucagon (Glucagen) 1 mg Q15M PRN IM DECREASED GLUCOSE; Start 03/03/17 at 15:30 Glucose 15 gm 15 gm Q15M PRN BUCCAL DECREASED GLUCOSE; Start 03/03/17 at 15:30 Sodium Chloride (NS) 1,000 ml @ 100 mls/hr Q10H IV Last administered on 08:36; Admin Dose 100 MLS/HR; Start 03/04/17 at 12:00 Diagnostic Test (Pha) (Accu-Chek) 1 ea 02 XX ; Start 03/05/17 at 02:00 Morphine Sulfate (morphine) 2 mg Q2H PRN IV PAIN Last administered on 22:33; Admin Dose 2 MG; Start 03/05/17 at 08:30 Gabapentin (Neurontin) 300 mg HS PO Last administered on 03/06/17 21:14; Admin Dose 300 MG; Start 03/05/17 at 21:00 Allopurinol (Zyloprim) 100 mg DAILY PO Last administered on 03/07/17 08:37; Admin Dose 100 MG; Start 03/05/17 at 09:30 Folic Acid (Folic Acid) 1 mg DAILY PO Last administered on 03/07/17 08:37; Admin Dose 1 MG; Start 03/05/17 at 09:30 Insulin Glargine (Lantus) 15 unit DAILY@20 SC Last administered on 03/06/17 21 :16; Admin Dose 15 UNIT; Start 03/05/17 at 20:00 Enoxaparin Sodium (Lovenox) 40 mg DAILY SC Last administered on 03/07/17 08:38 ; Admin Dose 40 MG; Start 03/05/17 at 12:00 Aspirin (Aspirin) 325 mg DAILY PO Last administered on 03/07/17 08:37; Admin Dose 325 MG; Start 03/05/17 at 12:00 Digoxin (Digoxin) 0.125 mg DAILY@13 PO Last administered on 03/07/17 14:27; Admin Dose 0.125 MG; Start 03/06/17 at 13:00 Metoprolol Tartrate (Lopressor) 5 mg Q4H PRN IV HR>110 Hold SBP<100; Start at 16:00 Amiodarone HCl (Cordarone) 200 mg TID PO Last administered on 03/07/17 14:27; Admin Dose 200 MG; Start 03/05/17 at 21:00 Lisinopril (Zestril) 2.5 mg DAILY PO Last administered on 03/07/17 08:37; Admin Dose 2.5 MG; Start 03/07/17 at 09:00 Simethicone (Mylicon) 80 mg BID PRN PO DISTENSION/GAS/BLOATING Last administered on 03/06/17 21:15; Admin Dose 80 MG; Start 03/06/17 at 21:00 Pantoprazole (Protonix Tab) 40 mg DAILY@06 PO Last administered on 03/07/17 06 :12; Admin Dose 40 MG; Start 03/06/17 at 21:00 Acetaminophen/ Hydrocodone Bitart ([place] (5/325)) 1 tab Q4H PRN PO Pain Last administered on 03/07/17 07:39; Admin Dose 2 TAB; Start 03/07/17 at 07:30 SHILA PRESSLEY Mar 07, 2017 17:07
[2017-03-07] MEDS: GABAPENTIN 300 MG CAP PO SCH (22:29)
[2017-03-07] MEDS: INSULIN GLARGINE [LANtus] 3 ML PEN SC SCH (22:45)
[2017-03-08] VITALS (12 sets, daily range): BP systolic 109–167; BP diastolic 56–70; PULSE 69–77; RESP 16–20
[2017-03-08] MEDS: HYDROCODONE/APAP (5/325) TAB PO PRN ×3 (00:28→19:58)
[2017-03-08] MEDS: ACCU-CHEK XX SCH (02:00)
[2017-03-08] MEDS: PANTOPRAZOLE (EC) 40 MG TAB PO SCH (05:45)
[2017-03-08] MEDS: INSULIN ASPART [NOVOLOG] 3 ML PEN SC SCH ×4 (08:00→21:00)
[2017-03-08 08:38] LABS: CREATININE 0.97 mg/dl (0.44-1.00); POTASSIUM 3.4 mmol/L (3.5-5.1)
[2017-03-08] MEDS: ASPIRIN 325 MG TAB PO SCH (08:56)
[2017-03-08] MEDS: LISINOPRIL 5 MG TAB PO SCH (08:56)
[2017-03-08] MEDS: FOLIC ACID 1 MG TAB PO SCH (08:56)
[2017-03-08] MEDS: AMIODARONE 200 MG TAB PO SCH ×3 (08:57→21:02)
[2017-03-08] MEDS: ALLOPURINOL 100 MG TAB PO SCH (08:57)
[2017-03-08] MEDS: ENOXAPARIN 40 MG/0.4 ML SYG SC SCH (09:03)
[2017-03-08] MEDS: DIGOXIN 0.125 MG TAB PO SCH (12:05)
--- NOTE | 2017-03-08 13:01 | CONS ---
Date/Time of Note Date/Time of Note DATE: 03/08/17 TIME: 13:00 Assessment/Plan Assessment/Plan Additional Assessment/Plan 1. Paroxysmal atrial fibrillation with rapid ventricular response, now in sinus rhythm and remains - In SINUS now. 2. Abnormal electrocardiogram with ST depressions laterally during time of tachyarrhythmia- now converted to sinus. 3. Hypotension, borderline - BP improved. Improved. 4. Postoperative status post treatment of rectal prolapse and repair of abdominal hernia- surgical team follows. 5. Diabetes mellitus - on meds, will keep euglycemic. 6. Anemia- no active bleed now. H/H stable - will monitor. Consultation Date/Type/Reason Admit Date/Time Mar 05, 2017 at 09:32 Type of Consultation: cardiology Referring Provider: CHUY KIM MD 24 HR Interval Summary Free Text/Dictation No acute events - in sinus, con't med rx - awaiting dispo ROS: No fever, no chills, no nausea, no vomiting, no diarrhea/constipation No recent weight changes No chest pain, no PND, no orthopnea No dizziness, blurred vision No thirst, no heat or cold intolerance Exam/Review of Systems Vital Signs Vitals Vital Signs Date Time Temp Pulse Resp B/P Pulse Ox O2 Delivery O2 Flow Rate FiO2 03/08/17 12:11 74 03/08/17 11:46 98.0 16 109/56 98 03/06/17 10:27 Nasal Cannula 2.0 Intake and Output 03/07/17 03/07/17 03/08/17 15:00 23:00 07:00 Intake Total 1200 ml 300 ml Balance 1200 ml 300 ml Exam General: WN/WD/NAD, AOx 3 HEENT: Unicetric/atraumatic/EOMI (follow commands) NECK: JVD elevated, no thyromegaly Lymph: no lymphadenopathy HEART: regular with no S3, II/ systolic murmur at apex LUNGS: Coarse sounds ABD: soft, NT, ND, +BS : Intact Neuro: non focal SKIN: chronic changes EXT: trace edema Results Result Diagram: 03/07/17 0555 03/08/17 0744 Results 24 hrs Laboratory Tests Test 03/07/17 16:44 03/07/17 22:27 03/08/17 07:44 03/08/17 08:52 Bedside Glucose 105 122 92 Sodium Level 133 L Potassium Level 3.4 L Chloride Level 104 Carbon Dioxide Level 23 Anion Gap 9 # Blood Urea Nitrogen 15 Creatinine 0.97 Glucose Level 87 Calcium Level 8.0 L Test 03/08/17 11:33 Bedside Glucose 153 Medications Medications Current Medications Miscellaneous Information 1 ea NOTE XX ; Start 03/03/17 at 15:30 Glucose (Glutose) 15 gm Q15M PRN PO DECREASED GLUCOSE; Start 03/03/17 at 15:30 Glucose (Glutose) 22.5 gm Q15M PRN PO DECREASED GLUCOSE; Start 03/03/17 at 15: 30 Dextrose (D50w Syringe) 25 ml Q15M PRN IV DECREASED GLUCOSE; Start 03/03/17 at 15:30 Dextrose (D50w Syringe) 50 ml Q15M PRN IV DECREASED GLUCOSE; Start 03/03/17 at 15:30 Glucagon (Glucagen) 1 mg Q15M PRN IM DECREASED GLUCOSE; Start 03/03/17 at 15:30 Glucose (Glutose) 15 gm Q15M PRN BUCCAL DECREASED GLUCOSE; Start 03/03/17 at 15 :30 Diagnostic Test (Pha) (Accu-Chek) 1 ea 02 XX ; Start 03/05/17 at 02:00 Morphine Sulfate (morphine) 2 mg Q2H PRN IV PAIN Last administered on 22:33; Admin Dose 2 MG; Start 03/05/17 at 08:30 Gabapentin (Neurontin) 300 mg HS PO Last administered on 03/07/17 22:29; Admin Dose 300 MG; Start 03/05/17 at 21:00 Allopurinol (Zyloprim) 100 mg DAILY PO Last administered on 03/08/17 08:57; Admin Dose 100 MG; Start 03/05/17 at 09:30 Folic Acid (Folic Acid) 1 mg DAILY PO Last administered on 03/08/17 08:56; Admin Dose 1 MG; Start 03/05/17 at 09:30 Insulin Glargine (Lantus) 15 unit DAILY@20 SC Last administered on 03/07/17 22 :45; Admin Dose 15 UNIT; Start 03/05/17 at 20:00 Enoxaparin Sodium (Lovenox) 40 mg DAILY SC Last administered on 03/08/17 09:03 ; Admin Dose 40 MG; Start 03/05/17 at 12:00 Aspirin (Aspirin) 325 mg DAILY PO Last administered on 03/08/17 08:56; Admin Dose 325 MG; Start 03/05/17 at 12:00 Digoxin (Digoxin) 0.125 mg DAILY@13 PO Last administered on 03/08/17 12:05; Admin Dose 0.125 MG; Start 03/06/17 at 13:00 Metoprolol Tartrate (Lopressor) 5 mg Q4H PRN IV HR>110 Hold SBP<100; Start at 16:00 Amiodarone HCl (Cordarone) 200 mg TID PO Last administered on 03/08/17 12:03; Admin Dose 200 MG; Start 03/05/17 at 21:00 Lisinopril (Zestril) 2.5 mg DAILY PO Last administered on 03/08/17 08:56; Admin Dose 2.5 MG; Start 03/07/17 at 09:00 Simethicone (Mylicon) 80 mg BID PRN PO DISTENSION/GAS/BLOATING Last administered on 03/08/17 12:02; Admin Dose 80 MG; Start 03/06/17 at 21:00 Pantoprazole (Protonix Tab) 40 mg DAILY@06 PO Last administered on 03/08/17 05 :45; Admin Dose 40 MG; Start 03/06/17 at 21:00 Acetaminophen/ Hydrocodone Bitart ([place] (5/325)) 1 tab Q4H PRN PO Pain Last administered on 03/08/17 00:28; Admin Dose 1 TAB; Start 03/07/17 at 07:30 ALLY ZAMORANO MD Mar 08, 2017 13:01
--- NOTE | 2017-03-08 16:35 | PN ---
DATE: 03/08/2017 FOLLOWUP Postop day #5 status post laparotomy, rectopexy and hernia repair. SUBJECTIVE: The patient still complains of pain in the lower abdomen, especially when she eats or she drinks water. She has had a very small amount of bowel movement today, semi-formed. Yesterday she did not have a bowel movement. The day before she had diarrhea. OBJECTIVE: GENERAL: Awake, alert, oriented x3. VITAL SIGNS: Temperature 98, heart rate 70 to 74, respirations 16, blood pressure 109/56, saturations 98% on room air. LABORATORY: Sodium and potassium both low. BUN and creatinine within normal limits. ABDOMEN: Soft. Dressing was removed. The wound is clean. EXTREMITIES: No calf tenderness. ASSESSMENT: The patient is relatively stable on postop day #5. We are waiting for a better bowel movement, so she is eating a regular diet. Will keep her till tomorrow. If she makes another bowel movement, then she can be discharged home tomorrow on Friday, go home and follow up with Dr. Person in the office. Dictated By: KAYE AGUILAR/SOFIYA Conf#: [id number] DID#: [id number] KELVIN
[2017-03-08] MEDS: GABAPENTIN 300 MG CAP PO SCH (21:02)
[2017-03-08] MEDS: INSULIN GLARGINE [LANtus] 3 ML PEN SC SCH (21:09)
[2017-03-09] VITALS (11 sets, daily range): BP systolic 122–139; BP diastolic 57–80; PULSE 69–76; RESP 16–18
[2017-03-09] MEDS: ACCU-CHEK XX SCH (02:00)
[2017-03-09] MEDS: PANTOPRAZOLE (EC) 40 MG TAB PO SCH (06:58)
[2017-03-09] MEDS: INSULIN ASPART [NOVOLOG] 3 ML PEN SC SCH ×4 (07:59→21:00)
[2017-03-09] MEDS: ENOXAPARIN 40 MG/0.4 ML SYG SC SCH (08:46)
[2017-03-09] MEDS: ASPIRIN 325 MG TAB PO SCH (08:46)
[2017-03-09] MEDS: LISINOPRIL 5 MG TAB PO SCH (08:47)
[2017-03-09] MEDS: AMIODARONE 200 MG TAB PO SCH ×3 (08:47→21:28)
[2017-03-09] MEDS: ALLOPURINOL 100 MG TAB PO SCH (08:47)
[2017-03-09] MEDS: FOLIC ACID 1 MG TAB PO SCH (08:47)
[2017-03-09] MEDS: DIGOXIN 0.125 MG TAB PO SCH (12:16)
--- NOTE | 2017-03-09 12:47 | PN ---
Date/Time of Note Date/Time of Note DATE: 03/09/17 TIME: 12:46 Assessment/Plan VTE Prophylaxis VTE Prophylaxis Intervention: other Lines/Catheters IV [facility]ter Type (from [facility]): [place] [facility] Urinary Cath still in place: No Assessment/Plan Chief Complaint/Hosp Course -Paroxysmal atrial fibrillation with rapid ventricular response. Dr. Carter is following and cardiology consultation, continue digoxin amiodarone and metoprolol. Continue Lovenox - Recurrent incarcerated incisional hernia and rectal prolapse status post an open recurrent incarcerated incisional hernia repair with implantation of mesh and lysis of adhesions, status post laparoscopic converted to open rectopexy. Continue IV fluids. Continue to follow up surgical recommendation. Zofran p.r.n. for nausea, morphine as needed for pain Advance diet per surgery. - Diabetes mellitus type 2. Continue Lantus and NovoLog per mild sliding scale. - Hypertension. Continue to monitor blood pressure, hydralazine p.r.n. for systolic blood pressure above 170. Problems: Subjective 24 Hr Interval Summary Free Text/Dictation Patient has no complaints Exam/Review of Systems Vital Signs Vitals Vital Signs Date Time Temp Pulse Resp B/P Pulse Ox O2 Delivery O2 Flow Rate FiO2 03/09/17 12:40 76 03/09/17 11:18 98.1 18 122/80 97 03/06/17 10:27 Nasal Cannula 2.0 Intake and Output 03/08/17 03/08/17 03/09/17 15:00 23:00 07:00 Intake Total 800 ml 550 ml Balance 800 ml 550 ml Exam Constitutional: well developed Head: atraumatic, normocephalic Neck: supple Respiratory: clear to auscultation Cardiovascular: regular rate and rhythm Gastrointestinal: non-tender, soft Extremities: normal pulses Results Result Diagram: 03/07/17 0555 03/08/17 0744 Results 24 hrs Laboratory Tests Test 03/08/17 17:46 03/08/17 21:00 03/09/17 07:37 03/09/17 12:15 Bedside Glucose 110 116 103 123 Medications Medications Current Medications Miscellaneous Information 1 ea NOTE XX ; Start 03/03/17 at 15:30 Glucose (Glutose) 15 gm Q15M PRN PO DECREASED GLUCOSE; Start 03/03/17 at 15:30 Glucose (Glutose) 22.5 gm Q15M PRN PO DECREASED GLUCOSE; Start 03/03/17 at 15: 30 Dextrose (D50w Syringe) 25 ml Q15M PRN IV DECREASED GLUCOSE; Start 03/03/17 at 15:30 Dextrose (D50w Syringe) 50 ml Q15M PRN IV DECREASED GLUCOSE; Start 03/03/17 at 15:30 Glucagon (Glucagen) 1 mg Q15M PRN IM DECREASED GLUCOSE; Start 03/03/17 at 15:30 Glucose (Glutose) 15 gm Q15M PRN BUCCAL DECREASED GLUCOSE; Start 03/03/17 at 15 :30 Diagnostic Test (Pha) (Accu-Chek) 1 ea 02 XX ; Start 03/05/17 at 02:00 Morphine Sulfate (morphine) 2 mg Q2H PRN IV PAIN Last administered on 22:33; Admin Dose 2 MG; Start 03/05/17 at 08:30 Gabapentin (Neurontin) 300 mg HS PO Last administered on 03/08/17 21:02; Admin Dose 300 MG; Start 03/05/17 at 21:00 Allopurinol (Zyloprim) 100 mg DAILY PO Last administered on 03/09/17 08:47; Admin Dose 100 MG; Start 03/05/17 at 09:30 Folic Acid (Folic Acid) 1 mg DAILY PO Last administered on 03/09/17 08:47; Admin Dose 1 MG; Start 03/05/17 at 09:30 Insulin Glargine (Lantus) 15 unit DAILY@20 SC Last administered on 03/08/17 21 :09; Admin Dose 15 UNIT; Start 03/05/17 at 20:00 Enoxaparin Sodium (Lovenox) 40 mg DAILY SC Last administered on 03/09/17 08:46 ; Admin Dose 40 MG; Start 03/05/17 at 12:00 Aspirin (Aspirin) 325 mg DAILY PO Last administered on 03/09/17 08:46; Admin Dose 325 MG; Start 03/05/17 at 12:00 Digoxin (Digoxin) 0.125 mg DAILY@13 PO Last administered on 03/09/17 12:16; Admin Dose 0.125 MG; Start 03/06/17 at 13:00 Metoprolol Tartrate (Lopressor) 5 mg Q4H PRN IV HR>110 Hold SBP<100; Start at 16:00 Amiodarone HCl (Cordarone) 200 mg TID PO Last administered on 03/09/17 12:17; Admin Dose 200 MG; Start 03/05/17 at 21:00 Lisinopril (Zestril) 2.5 mg DAILY PO Last administered on 03/09/17 08:47; Admin Dose 2.5 MG; Start 03/07/17 at 09:00 Simethicone (Mylicon) 80 mg BID PRN PO DISTENSION/GAS/BLOATING Last administered on 03/08/17 19:58; Admin Dose 80 MG; Start 03/06/17 at 21:00 Pantoprazole (Protonix Tab) 40 mg DAILY@06 PO Last administered on 03/09/17 06 :58; Admin Dose 40 MG; Start 03/06/17 at 21:00 Acetaminophen/ Hydrocodone Bitart ([place] (5/325)) 1 tab Q4H PRN PO Pain Last administered on 03/08/17 19:58; Admin Dose 1 TAB; Start 03/07/17 at 07:30 UNIQUE ABBOTT Mar 09, 2017 12:47
[2017-03-09] MEDS ORDERED: BISACODYL (EC) 5 MG TAB PO PRN (14:30)
--- NOTE | 2017-03-09 15:49 | CONS ---
Date/Time of Note Date/Time of Note DATE: 03/09/17 TIME: 15:48 Assessment/Plan Assessment/Plan Additional Assessment/Plan 1. Paroxysmal atrial fibrillation with rapid ventricular response, now in sinus rhythm and remains - In SINUS now. 2. Abnormal electrocardiogram with ST depressions laterally during time of tachyarrhythmia- now converted to sinus. 3. Hypotension, borderline - BP improved. Improved. BETTER now. 4. Postoperative status post treatment of rectal prolapse and repair of abdominal hernia- surgical team follows. 5. Diabetes mellitus - on meds, will keep euglycemic. STABLE. 6. Anemia- no active bleed now. H/H stable - will monitor. Consultation Date/Type/Reason Admit Date/Time Mar 05, 2017 at 09:32 Type of Consultation: cardiology Referring Provider: CHUY KIM MD 24 HR Interval Summary Free Text/Dictation NO acute events - no significant ectopy on tele. ROS: No fever, no chills, no nausea, no vomiting, no diarrhea/constipation No recent weight changes No chest pain, no PND, no orthopnea No dizziness, blurred vision No thirst, no heat or cold intolerance Exam/Review of Systems Vital Signs Vitals Vital Signs Date Time Temp Pulse Resp B/P Pulse Ox O2 Delivery O2 Flow Rate FiO2 03/09/17 15:12 98.1 72 16 139/57 97 03/06/17 10:27 Nasal Cannula 2.0 Intake and Output 03/08/17 03/08/17 03/09/17 15:00 23:00 07:00 Intake Total 800 ml 550 ml Balance 800 ml 550 ml Exam General: WN/WD/NAD, AOx 3 HEENT: Unicetric/atraumatic/EOMI ( follow commands) NECK: JVD elevated, no thyromegaly Lymph: no lymphadenopathy HEART: regular with no S3, II/ systolic murmur at apex LUNGS: Coarse sounds ABD: soft, NT, ND, +BS : Intact Neuro: non focal SKIN: chronic changes EXT: trace edema Results Result Diagram: 03/07/17 0555 03/08/17 0744 Results 24 hrs Laboratory Tests Test 03/08/17 17:46 03/08/17 21:00 03/09/17 07:37 03/09/17 12:15 Bedside Glucose 110 116 103 123 Medications Medications Current Medications Miscellaneous Information 1 ea NOTE XX ; Start 03/03/17 at 15:30 Glucose (Glutose) 15 gm Q15M PRN PO DECREASED GLUCOSE; Start 03/03/17 at 15:30 Glucose (Glutose) 22.5 gm Q15M PRN PO DECREASED GLUCOSE; Start 03/03/17 at 15: 30 Dextrose (D50w Syringe) 25 ml Q15M PRN IV DECREASED GLUCOSE; Start 03/03/17 at 15:30 Dextrose (D50w Syringe) 50 ml Q15M PRN IV DECREASED GLUCOSE; Start 03/03/17 at 15:30 Glucagon (Glucagen) 1 mg Q15M PRN IM DECREASED GLUCOSE; Start 03/03/17 at 15:30 Glucose (Glutose) 15 gm Q15M PRN BUCCAL DECREASED GLUCOSE; Start 03/03/17 at 15 :30 Diagnostic Test (Pha) (Accu-Chek) 1 ea 02 XX ; Start 03/05/17 at 02:00 Morphine Sulfate (morphine) 2 mg Q2H PRN IV PAIN Last administered on 22:33; Admin Dose 2 MG; Start 03/05/17 at 08:30 Gabapentin (Neurontin) 300 mg HS PO Last administered on 03/08/17 21:02; Admin Dose 300 MG; Start 03/05/17 at 21:00 Allopurinol (Zyloprim) 100 mg DAILY PO Last administered on 03/09/17 08:47; Admin Dose 100 MG; Start 03/05/17 at 09:30 Folic Acid (Folic Acid) 1 mg DAILY PO Last administered on 03/09/17 08:47; Admin Dose 1 MG; Start 03/05/17 at 09:30 Insulin Glargine (Lantus) 15 unit DAILY@20 SC Last administered on 03/08/17 21 :09; Admin Dose 15 UNIT; Start 03/05/17 at 20:00 Enoxaparin Sodium (Lovenox) 40 mg DAILY SC Last administered on 03/09/17 08:46 ; Admin Dose 40 MG; Start 03/05/17 at 12:00 Aspirin (Aspirin) 325 mg DAILY PO Last administered on 03/09/17 08:46; Admin Dose 325 MG; Start 03/05/17 at 12:00 Digoxin (Digoxin) 0.125 mg DAILY@13 PO Last administered on 03/09/17 12:16; Admin Dose 0.125 MG; Start 03/06/17 at 13:00 Metoprolol Tartrate (Lopressor) 5 mg Q4H PRN IV HR>110 Hold SBP<100; Start at 16:00 Amiodarone HCl (Cordarone) 200 mg TID PO Last administered on 03/09/17 12:17; Admin Dose 200 MG; Start 03/05/17 at 21:00 Lisinopril (Zestril) 2.5 mg DAILY PO Last administered on 03/09/17 08:47; Admin Dose 2.5 MG; Start 03/07/17 at 09:00 Simethicone (Mylicon) 80 mg BID PRN PO DISTENSION/GAS/BLOATING Last administered on 03/09/17 13:48; Admin Dose 80 MG; Start 03/06/17 at 21:00 Pantoprazole (Protonix Tab) 40 mg DAILY@06 PO Last administered on 03/09/17 06 :58; Admin Dose 40 MG; Start 03/06/17 at 21:00 Acetaminophen/ Hydrocodone Bitart ([place] (5/325)) 1 tab Q4H PRN PO Pain Last administered on 03/08/17 19:58; Admin Dose 1 TAB; Start 03/07/17 at 07:30 Bisacodyl (Dulcolax) 5 mg Q6 PRN PO CONSTIPATION; Start 03/09/17 at 14:30 Mineral Oil (Mineral Oil) 30 ml TID PO ; Start 03/09/17 at 21:00; Status ALLY YANES MD Mar 09, 2017 15:49
[2017-03-09] MEDS: MINERAL OIL 30ML CUP PO SCH (21:27)
[2017-03-09] MEDS: GABAPENTIN 300 MG CAP PO SCH (21:27)
[2017-03-09] MEDS: INSULIN GLARGINE [LANtus] 3 ML PEN SC SCH (21:29)
[2017-03-10] VITALS (10 sets, daily range): BP systolic 118–126; BP diastolic 54–61; PULSE 75–82; RESP 17–18
[2017-03-10] MEDS: ACCU-CHEK XX SCH (02:00)
[2017-03-10] MEDS: PANTOPRAZOLE (EC) 40 MG TAB PO SCH (05:44)
[2017-03-10] MEDS: morphine 2 MG INJ IV PRN (05:44)
--- NOTE | 2017-03-10 07:36 | PN ---
DATE: 03/09/2017 SUBJECTIVE: No complaint today. Mild abdominal pain. Has not had any bowel movement. No nausea, no vomiting. Her appetite is low. Has had a slight amount of food. No passing gas. Status post l aparotomy and rectopexy. OBJECTIVE: GENERAL: Awake, alert, oriented x3, lying down in the bed. VITAL SIGNS: Temperature 98.1, pulse is 72, respirations 18, blood pressure 139/57, saturation 97% on room air. ABDOMEN: Soft. Mild tenderness left lower quadrant on deep pressure. Wound is clean. EXTREMITIES: Legs, no calf tenderness. LABORATORY DATA: No labs today. ASSESSMENT: A 71-year-old female with status post laparotomy and rectopexy. No major problems exce pt that she has not had a bowel movement and is passing minimal gas. PLAN: I am going to get a KUB today to make sure there is no accumulation of stool proximal to the site of rectopexy and meanwhile, we are going to give her mineral oil as well. Will continue to fol low. Dictated By: KAYE AGUILAR/SOFIYA Conf#: [id number] DID#: [id number]
[2017-03-10] MEDS: INSULIN ASPART [NOVOLOG] 3 ML PEN SC SCH ×4 (08:00→21:00)
[2017-03-10 08:08] LABS: ADD SCAN DIFF NO
[2017-03-10 08:21] LABS: BASOPHILS % 0.1 % (0.0-2.0); EOSINOPHILS # 0.3 10^3/ul (0.0-0.5); HEMATOCRIT 26.7 % (37.0-47.0); HEMOGLOBIN 8.8 g/dl (12.0-16.0); LYMPHOCYTES % 13.8 % (15.0-51.0); MEAN CORPUSCULAR HEMOGLOBIN 24.4 pg (29.0-33.0); MEAN PLATELET VOLUME 11.9 fl (7.4-10.4); MONOCYTE # 0.5 10^3/ul (0.3-0.9); MONOCYTES % 7.4 % (0.0-11.0); NEUTROPHIL # 5.4 10^3/ul (1.6-7.5); NEUTROPHILS % 74.3 % (39.0-77.0); PLATELET COUNT 251 10^3/UL (140-415); RED BLOOD COUNT 3.61 10^6/ul (4.20-5.40); RED CELL DISTRIBUTION WIDTH 15.3 % (11.5-14.5); WHITE BLOOD COUNT 7.3 10^3/ul (4.8-10.8)
--- NOTE | 2017-03-10 08:33 | CONS ---
Date/Time of Note Date/Time of Note DATE: 03/10/17 TIME: 08:32 Assessment/Plan Assessment/Plan Additional Assessment/Plan 1. Paroxysmal atrial fibrillation with rapid ventricular response, now in sinus rhythm and remains - In SINUS now. No change. 2. Abnormal electrocardiogram with ST depressions laterally during time of tachyarrhythmia- now converted to sinus. 3. Hypotension, borderline - BP improved. Improved. BETTER now. 4. Postoperative status post treatment of rectal prolapse and repair of abdominal hernia- surgical team follows. Still some pain noted - PMD follows/ 5. Diabetes mellitus - on meds, will keep euglycemic. STABLE. 6. Anemia- no active bleed now. H/H stable - will monitor. Consultation Date/Type/Reason Admit Date/Time Mar 05, 2017 at 09:32 Type of Consultation: cardiology Referring Provider: CHUY KIM MD 24 HR Interval Summary Free Text/Dictation NO acute events - in sinus now. ROS: No fever, no chills, no nausea, no vomiting, no diarrhea/constipation No recent weight changes No chest pain, no PND, no orthopnea No dizziness, blurred vision No thirst, no heat or cold intolerance Exam/Review of Systems Vital Signs Vitals Vital Signs Date Time Temp Pulse Resp B/P Pulse Ox O2 Delivery O2 Flow Rate FiO2 03/10/17 07:47 98.1 77 18 123/57 94 03/06/17 10:27 Nasal Cannula 2.0 Intake and Output 03/09/17 03/09/17 03/10/17 15:00 23:00 07:00 Intake Total 810 ml 650 ml Output Total 700 ml 850 ml Balance 110 ml -200 ml Exam General: WN/WD/NAD, AOx 3 HEENT: Unicetric/atraumatic/EOMI (follow commands) NECK: JVD elevated, no thyromegaly Lymph: no lymphadenopathy HEART: regular with no S3, II/ systolic murmur at apex LUNGS: Coarse sounds ABD: soft, NT, ND, +BS : Intact Neuro: non focal SKIN: chronic changes EXT: trace edema Results Result Diagram: 03/07/17 0555 03/08/17 0744 Results 24 hrs Laboratory Tests Test 03/09/17 12:15 03/09/17 17:19 03/09/17 21:21 Bedside Glucose 123 130 167 Medications Medications Current Medications Miscellaneous Information 1 ea NOTE XX ; Start 03/03/17 at 15:30 Glucose (Glutose) 15 gm Q15M PRN PO DECREASED GLUCOSE; Start 03/03/17 at 15:30 Glucose (Glutose) 22.5 gm Q15M PRN PO DECREASED GLUCOSE; Start 03/03/17 at 15: 30 Dextrose (D50w Syringe) 25 ml Q15M PRN IV DECREASED GLUCOSE; Start 03/03/17 at 15:30 Dextrose (D50w Syringe) 50 ml Q15M PRN IV DECREASED GLUCOSE; Start 03/03/17 at 15:30 Glucagon (Glucagen) 1 mg Q15M PRN IM DECREASED GLUCOSE; Start 03/03/17 at 15:30 Glucose (Glutose) 15 gm Q15M PRN BUCCAL DECREASED GLUCOSE; Start 03/03/17 at 15 :30 Diagnostic Test (Pha) (Accu-Chek) 1 ea 02 XX ; Start 03/05/17 at 02:00 Morphine Sulfate (morphine) 2 mg Q2H PRN IV PAIN Last administered on 05:44; Admin Dose 2 MG; Start 03/05/17 at 08:30 Gabapentin (Neurontin) 300 mg HS PO Last administered on 03/09/17 21:27; Admin Dose 300 MG; Start 03/05/17 at 21:00 Allopurinol (Zyloprim) 100 mg DAILY PO Last administered on 03/09/17 08:47; Admin Dose 100 MG; Start 03/05/17 at 09:30 Folic Acid (Folic Acid) 1 mg DAILY PO Last administered on 03/09/17 08:47; Admin Dose 1 MG; Start 03/05/17 at 09:30 Insulin Glargine (Lantus) 15 unit DAILY@20 SC Last administered on 03/09/17 21 :29; Admin Dose 15 UNIT; Start 03/05/17 at 20:00 Enoxaparin Sodium (Lovenox) 40 mg DAILY SC Last administered on 03/09/17 08:46 ; Admin Dose 40 MG; Start 03/05/17 at 12:00 Aspirin (Aspirin) 325 mg DAILY PO Last administered on 03/09/17 08:46; Admin Dose 325 MG; Start 03/05/17 at 12:00 Digoxin (Digoxin) 0.125 mg DAILY@13 PO Last administered on 03/09/17 12:16; Admin Dose 0.125 MG; Start 03/06/17 at 13:00 Metoprolol Tartrate (Lopressor) 5 mg Q4H PRN IV HR>110 Hold SBP<100; Start at 16:00 Amiodarone HCl (Cordarone) 200 mg TID PO Last administered on 03/09/17 21:28; Admin Dose 200 MG; Start 03/05/17 at 21:00 Lisinopril (Zestril) 2.5 mg DAILY PO Last administered on 03/09/17 08:47; Admin Dose 2.5 MG; Start 03/07/17 at 09:00 Simethicone (Mylicon) 80 mg BID PRN PO DISTENSION/GAS/BLOATING Last administered on 03/09/17 13:48; Admin Dose 80 MG; Start 03/06/17 at 21:00 Pantoprazole (Protonix Tab) 40 mg DAILY@06 PO Last administered on 03/10/17 05 :44; Admin Dose 40 MG; Start 03/06/17 at 21:00 Acetaminophen/ Hydrocodone Bitart ([place] (5/325)) 1 tab Q4H PRN PO Pain Last administered on 03/08/17 19:58; Admin Dose 1 TAB; Start 03/07/17 at 07:30 Bisacodyl (Dulcolax) 5 mg Q6 PRN PO CONSTIPATION; Start 03/09/17 at 14:30 Mineral Oil (Mineral Oil) 30 ml TID PO Last administered on 03/09/17 21:27; Admin Dose 30 ML; Start 03/09/17 at 21:00 ALLY ZAMORANO MD Mar 10, 2017 08:33
[2017-03-10 08:45] LABS: CALCIUM 7.7 mg/dl (8.4-10.2); CREATININE 1.01 mg/dl (0.44-1.00); POTASSIUM 3.3 mmol/L (3.5-5.1)
[2017-03-10] MEDS: AMIODARONE 200 MG TAB PO SCH ×3 (08:59→21:23)
[2017-03-10] MEDS: FOLIC ACID 1 MG TAB PO SCH (08:59)
[2017-03-10] MEDS: ALLOPURINOL 100 MG TAB PO SCH (08:59)
[2017-03-10] MEDS: ASPIRIN 325 MG TAB PO SCH (08:59)
[2017-03-10] MEDS: LISINOPRIL 5 MG TAB PO SCH (09:00)
[2017-03-10] MEDS: MINERAL OIL 30ML CUP PO SCH ×3 (09:04→21:22)
[2017-03-10] MEDS: ENOXAPARIN 40 MG/0.4 ML SYG SC SCH (09:09)
[2017-03-10] MEDS: DIGOXIN 0.125 MG TAB PO SCH (13:01)
--- NOTE | 2017-03-10 14:28 | RADRPT ---
PROCEDURE: XR Abdomen. CLINICAL INDICATION: Status post laparotomy January 1969 year-old female. TECHNIQUE: AP abdomen x-ray. COMPARISON: CT scan abdomen pelvis 05/28/2016. FINDINGS: There are clips in the mid and lower abdomen and slightly right of midline extending down to the pub ic symphysis be there are air-filled small bowel loops in the left side of the abdomen which are not organized. There is scattered fecal material in the cecum and ascending colon. There is fecal mat erial in the descending colon and rectal ampulla. There are degenerative osteophytes in the lumbar spine. The left ventricle is enlarged. The right diaphragm is elevated. The lungs are clear with no pleural effusion identified IMPRESSION: 1. Postoperative reflex ileus with clips in the mid and abdomen, lower abdomen and pelvis related t o surgery. 2. Cardiomegaly with elevation of the left diaphragm. 3. No evidence of pneumoperitoneum or of a mechanical bowel obstruction. RPTAT:AAJJ Physician Bennett Date Time Electronically viewed and signed by Physician Bennett on 03/10/2017 14:27 BELEM/
[2017-03-10] MEDS ORDERED: POTASSIUM CHLORIDE 20 MEQ POWDER FOR ORAL SOLN PO ONE (16:00)
--- NOTE | 2017-03-10 16:00 | PN ---
Date/Time of Note Date/Time of Note DATE: 03/10/17 TIME: 15:57 Assessment/Plan VTE Prophylaxis VTE Prophylaxis Intervention: SCD's Lines/Catheters IV [facility] Type [facility] Saline Lock Assessment/Plan Chief Complaint/Hosp Course Patient is currently in sinus rhythm on site monitor, had BM, tolerates diet well. Antiipate d/c home upon insurance approval for Eliquis for PAF. ASSESSMENT AND PLAN: -Paroxysmal atrial fibrillation with rapid ventricular response, now in SR. Dr. Carter is following and cardiology consultation, continue digoxin amiodarone and metoprolol. Continue Lovenox. Started on Eliquis. - Recurrent incarcerated incisional hernia and rectal prolapse status post an open recurrent incarcerated incisional hernia repair with implantation of mesh and lysis of adhesions, status post laparoscopic converted to open rectopexy. Continue to follow up surgical recommendation. Zofran p.r.n. for nausea, morphine as needed for pain Advance diet per surgery. - Diabetes mellitus type 2. Continue Lantus and NovoLog per mild sliding scale. - Hypertension. Continue to monitor blood pressure, hydralazine p.r.n. for systolic blood pressure above 170. Sequential compression devices for deep venous thrombosis prophylaxis. Further recommendations based on clinical course. Plan of care discussed with Dr. Harris. Problems: Exam/Review of Systems Vital Signs Vitals Vital Signs Date Time Temp Pulse Resp B/P Pulse Ox O2 Delivery O2 Flow Rate FiO2 03/10/17 15:43 98.1 80 18 126/57 95 03/06/17 10:27 Nasal Cannula 2.0 Intake and Output 03/09/17 03/09/17 03/10/17 15:00 23:00 07:00 Intake Total 810 ml 650 ml Output Total 700 ml 850 ml Balance 110 ml -200 ml Exam Constitutional: alert, oriented Head: normocephalic Neck: supple Cardiovascular: nl pulses Gastrointestinal: other (Status post surgery), soft Extremities: normal pulses Neurological: nl mental status Results Result Diagram: 03/10/17 0710 03/10/17 0710 Results 24 hrs Laboratory Tests Test 03/09/17 17:19 03/09/17 21:21 03/10/17 07:10 03/10/17 08:57 Bedside Glucose 130 167 122 White Blood Count 7.3 Red Blood Count 3.61 L Hemoglobin 8.8 L Hematocrit 26.7 L Mean Corpuscular Volume 74.0 L Mean Corpuscular Hemoglobin 24.4 L Mean Corpuscular Hemoglobin Concent 33.0 Red Cell Distribution Width 15.3 H Platelet Count 251 # Mean Platelet Volume 11.9 H Neutrophils % 74.3 Lymphocytes % 13.8 L Monocytes % 7.4 Eosinophils % 4.0 Basophils % 0.1 Nucleated Red Blood Cells % 0.0 Neutrophils # 5.4 Lymphocytes # 1.0 Monocytes # 0.5 Eosinophils # 0.3 Basophils # 0.0 Nucleated Red Blood Cells # 0.0 Sodium Level 134 L Potassium Level 3.3 L Chloride Level 101 Carbon Dioxide Level 25 Anion Gap 11 Blood Urea Nitrogen 15 Creatinine 1.01 H Glucose Level 101 Calcium Level 7.7 L Test 03/10/17 11:52 Bedside Glucose 142 Medications Medications Current Medications Miscellaneous Information 1 ea NOTE XX ; Start 03/03/17 at 15:30 Glucose (Glutose) 15 gm Q15M PRN PO DECREASED GLUCOSE; Start 03/03/17 at 15:30 Glucose (Glutose) 22.5 gm Q15M PRN PO DECREASED GLUCOSE; Start 03/03/17 at 15: 30 Dextrose (D50w Syringe) 25 ml Q15M PRN IV DECREASED GLUCOSE; Start 03/03/17 at 15:30 Dextrose (D50w Syringe) 50 ml Q15M PRN IV DECREASED GLUCOSE; Start 03/03/17 at 15:30 Glucagon (Glucagen) 1 mg Q15M PRN IM DECREASED GLUCOSE; Start 03/03/17 at 15:30 Glucose (Glutose) 15 gm Q15M PRN BUCCAL DECREASED GLUCOSE; Start 03/03/17 at 15 :30 Diagnostic Test (Pha) (Accu-Chek) 1 ea 02 XX ; Start 03/05/17 at 02:00 Morphine Sulfate (morphine) 2 mg Q2H PRN IV PAIN Last administered on 05:44; Admin Dose 2 MG; Start 03/05/17 at 08:30 Gabapentin (Neurontin) 300 mg HS PO Last administered on 03/09/17 21:27; Admin Dose 300 MG; Start 03/05/17 at 21:00 Allopurinol (Zyloprim) 100 mg DAILY PO Last administered on 03/10/17 08:59; Admin Dose 100 MG; Start 03/05/17 at 09:30 Folic Acid (Folic Acid) 1 mg DAILY PO Last administered on 03/10/17 08:59; Admin Dose 1 MG; Start 03/05/17 at 09:30 Insulin Glargine (Lantus) 15 unit DAILY@20 SC Last administered on 03/09/17 21 :29; Admin Dose 15 UNIT; Start 03/05/17 at 20:00 Enoxaparin Sodium (Lovenox) 40 mg DAILY SC Last administered on 03/10/17 09:09 ; Admin Dose 40 MG; Start 03/05/17 at 12:00 Aspirin (Aspirin) 325 mg DAILY PO Last administered on 03/10/17 08:59; Admin Dose 325 MG; Start 03/05/17 at 12:00 Digoxin (Digoxin) 0.125 mg DAILY@13 PO Last administered on 03/10/17 13:01; Admin Dose 0.125 MG; Start 03/06/17 at 13:00 Metoprolol Tartrate (Lopressor) 5 mg Q4H PRN IV HR>110 Hold SBP<100; Start at 16:00 Amiodarone HCl (Cordarone) 200 mg TID PO Last administered on 03/10/17 12:59; Admin Dose 200 MG; Start 03/05/17 at 21:00 Lisinopril (Zestril) 2.5 mg DAILY PO Last administered on 03/10/17 09:00; Admin Dose 2.5 MG; Start 03/07/17 at 09:00 Simethicone (Mylicon) 80 mg BID PRN PO DISTENSION/GAS/BLOATING Last administered on 03/09/17 13:48; Admin Dose 80 MG; Start 03/06/17 at 21:00 Pantoprazole (Protonix Tab) 40 mg DAILY@06 PO Last administered on 03/10/17 05 :44; Admin Dose 40 MG; Start 03/06/17 at 21:00 Acetaminophen/ Hydrocodone Bitart ([place] (5/325)) 1 tab Q4H PRN PO Pain Last administered on 03/08/17 19:58; Admin Dose 1 TAB; Start 03/07/17 at 07:30 Bisacodyl (Dulcolax) 5 mg Q6 PRN PO CONSTIPATION; Start 03/09/17 at 14:30 Mineral Oil (Mineral Oil) 30 ml TID PO Last administered on 03/10/17t 12:58; Admin Dose 30 ML; Start 03/09/17 at 21:00 Potassium Chloride (Potassium Chloride Pwd/Soln) 40 meq ONCE ONCE PO ; Start at 16:00; Stop 03/10/17 at 16:01 Apixaban (Eliquis) 5 mg BID PO ; Start 03/10/17 at 21:00; Status SHILA LOPEZ Mar 10, 2017 16:00
[2017-03-10] MEDS ORDERED: APIX5TAB PO (16:15)
[2017-03-10] MEDS ORDERED: LISI-313 PO (16:15)
[2017-03-10] MEDS ORDERED: DIGO125T PO (16:15)
[2017-03-10] MEDS ORDERED: AMIO200T2 PO (16:15)
[2017-03-10] MEDS: INSULIN GLARGINE [LANtus] 3 ML PEN SC SCH (20:01)
[2017-03-10] MEDS: APIXABAN 5 MG TABLET PO SCH (21:22)
[2017-03-10] MEDS: GABAPENTIN 300 MG CAP PO SCH (21:22)
[2017-03-11] VITALS (10 sets, daily range): BP systolic 102–126; BP diastolic 53–79; PULSE 12–79; RESP 17–19
[2017-03-11] MEDS: ACCU-CHEK XX SCH (02:01)
[2017-03-11] MEDS: morphine 2 MG INJ IV PRN (04:38)
[2017-03-11] MEDS: PANTOPRAZOLE (EC) 40 MG TAB PO SCH (05:36)
[2017-03-11] MEDS: INSULIN ASPART [NOVOLOG] 3 ML PEN SC SCH ×2 (07:50→11:48)
[2017-03-11] MEDS: ENOXAPARIN 40 MG/0.4 ML SYG SC SCH (08:17)
[2017-03-11] MEDS: ASPIRIN 325 MG TAB PO SCH (08:17)
[2017-03-11] MEDS: LISINOPRIL 5 MG TAB PO SCH (08:18)
[2017-03-11] MEDS: FOLIC ACID 1 MG TAB PO SCH (08:18)
[2017-03-11] MEDS: APIXABAN 5 MG TABLET PO SCH (08:18)
[2017-03-11] MEDS: ALLOPURINOL 100 MG TAB PO SCH (08:18)
[2017-03-11] MEDS: AMIODARONE 200 MG TAB PO SCH ×2 (08:19→13:09)
[2017-03-11] MEDS: MINERAL OIL 30ML CUP PO SCH ×2 (08:19→08:24)
[2017-03-11] MEDS: DIGOXIN 0.125 MG TAB PO SCH (13:08)
[2017-03-11] MEDS: HYDROCODONE/APAP (5/325) TAB PO PRN (13:18)
--- NOTE | 2017-03-11 15:51 | CONS ---
Date/Time of Note Date/Time of Note DATE: 03/11/17 TIME: 15:49 Assessment/Plan Assessment/Plan Chief Complaint/Hosp Course IMPRESSION: 1. Paroxysmal atrial fibrillation with rapid ventricular response, now in sinus rhythm and remains 2. Abnormal electrocardiogram with ST depressions laterally during time of tachyarrhythmia. 3. Hypotension, borderline. 4. Postoperative status post treatment of rectal prolapse and repair of abdominal hernia. 5. Diabetes mellitus. 6. Anemia. REcc: -Tele -serial ecg's -Continue asa and started on eliquis as tolerated only given post-surgical status -Continue BB -Continue amio loading in attempt to maintain SR at this time and will decrease to bid -Continue insulin and follow BS closely -pain control Problems: Consultation Date/Type/Reason Admit Date/Time Mar 05, 2017 at 09:32 Initial Consult Date 03/05/2017 Type of Consultation: cardiology Reason for Consultation PAF Referring Provider: CHUY KIM MD Exam/Review of Systems Vital Signs Vitals Vital Signs Date Time Temp Pulse Resp B/P Pulse Ox O2 Delivery O2 Flow Rate FiO2 03/11/17 12:36 77 03/11/17 11:38 98.0 19 106/53 98 Intake and Output 03/10/17 03/10/17 03/11/17 15:00 23:00 07:00 Intake Total 720 ml 200 ml Balance 720 ml 200 ml Exam Review of Systems: CONSTITUTIONAL: No fevers, chills. PULMONARY: No sob CARDIOVASCULAR: No chest pain/palpitations GASTROINTESTINAL: No nausea/vomiting. GENITOURINARY: No hematuria/dysuria. MUSCULOSKELETAL: No myagias/arthalgias. PSYCHIATRIC: The patient denies depression. NEUROLOGIC: No weakness Constitutional: alert Psych: no complaints Head: normocephalic ENMT: mucosa pink and moist Neck: jvd (8 cm water), supple Respiratory: diminished breath sounds (at bases/B) Cardiovascular: regular rate and rhythm Gastrointestinal: non-tender, other (hypogastric region covered by dressing), soft Musculoskeletal: muscle tone Extremities: edema (none) Results Result Diagram: 03/10/17 0710 03/10/17 0710 Results 24 hrs Laboratory Tests Test 03/10/17 17:13 03/10/17 21:20 03/11/17 07:44 03/11/17 11:48 Bedside Glucose 176 148 124 112 Medications Medications Current Medications Miscellaneous Information 1 ea NOTE XX ; Start 03/03/17 at 15:30 Glucose (Glutose) 15 gm Q15M PRN PO DECREASED GLUCOSE; Start 03/03/17 at 15:30 Glucose (Glutose) 22.5 gm Q15M PRN PO DECREASED GLUCOSE; Start 03/03/17 at 15: 30 Dextrose (D50w Syringe) 25 ml Q15M PRN IV DECREASED GLUCOSE; Start 03/03/17 at 15:30 Dextrose (D50w Syringe) 50 ml Q15M PRN IV DECREASED GLUCOSE; Start 03/03/17 at 15:30 Glucagon (Glucagen) 1 mg Q15M PRN IM DECREASED GLUCOSE; Start 03/03/17 at 15:30 Glucose (Glutose) 15 gm Q15M PRN BUCCAL DECREASED GLUCOSE; Start 03/03/17 at 15 :30 Diagnostic Test (Pha) (Accu-Chek) 1 ea 02 XX Last administered on 03/11/17 02: 01; Admin Dose 1 EA; Start 03/05/17 at 02:00 Morphine Sulfate (morphine) 2 mg Q2H PRN IV PAIN Last administered on 04:38; Admin Dose 2 MG; Start 03/05/17 at 08:30 Gabapentin (Neurontin) 300 mg HS PO Last administered on 03/10/17 21:22; Admin Dose 300 MG; Start 03/05/17 at 21:00 Allopurinol (Zyloprim) 100 mg DAILY PO Last administered on 03/11/17 08:18; Admin Dose 100 MG; Start 03/05/17 at 09:30 Folic Acid (Folic Acid) 1 mg DAILY PO Last administered on 03/11/17 08:18; Admin Dose 1 MG; Start 03/05/17 at 09:30 Insulin Glargine (Lantus) 15 unit DAILY@20 SC Last administered on 03/10/17 20 :01; Admin Dose 15 UNIT; Start 03/05/17 at 20:00 Enoxaparin Sodium (Lovenox) 40 mg DAILY SC Last administered on 03/11/17 08:17 ; Admin Dose 40 MG; Start 03/05/17 at 12:00 Aspirin (Aspirin) 325 mg DAILY PO Last administered on 03/11/17 08:17; Admin Dose 325 MG; Start 03/05/17 at 12:00 Digoxin (Digoxin) 0.125 mg DAILY@13 PO Last administered on 03/11/17 13:08; Admin Dose 0.125 MG; Start 03/06/17 at 13:00 Metoprolol Tartrate (Lopressor) 5 mg Q4H PRN IV HR>110 Hold SBP<100; Start at 16:00 Amiodarone HCl (Cordarone) 200 mg TID PO Last administered on 03/11/17 13:09; Admin Dose 200 MG; Start 03/05/17 at 21:00 Lisinopril (Zestril) 2.5 mg DAILY PO Last administered on 03/11/17 08:18; Admin Dose 2.5 MG; Start 03/07/17 at 09:00 Simethicone (Mylicon) 80 mg BID PRN PO DISTENSION/GAS/BLOATING Last administered on 03/09/17 13:48; Admin Dose 80 MG; Start 03/06/17 at 21:00 Pantoprazole (Protonix Tab) 40 mg DAILY@06 PO Last administered on 03/11/17 05 :36; Admin Dose 40 MG; Start 03/06/17 at 21:00 Acetaminophen/ Hydrocodone Bitart ([place] (5/325)) 1 tab Q4H PRN PO Pain Last administered on 03/11/17 13:18; Admin Dose 1 TAB; Start 03/07/17 at 07:30 Bisacodyl (Dulcolax) 5 mg Q6 PRN PO CONSTIPATION; Start 03/09/17 at 14:30 Mineral Oil (Mineral Oil) 30 ml TID PO Last administered on 03/10/17 21:22; Admin Dose 30 ML; Start 03/09/17 at 21:00 Apixaban (Eliquis) 5 mg BID PO Last administered on 03/11/17 08:18; Admin Dose 5 MG; Start 03/10/17 at 21:00 BERNABE SUAREZ Mar 11, 2017 15:51
[2017-03-11] MEDS ORDERED: AMIODARONE 200 MG TAB PO SCH (21:00)
[2017-03-12] MEDS ORDERED: ASPIRIN 81 MG TAB PO SCH (09:00)
--- NOTE | 2017-03-14 20:19 | DS ---
Date/Time of Note Date/Time of Note DATE: 03/14/17 TIME: 20:16 Discharge Summary Admission/Discharge Info Admit Date/Time Mar 05, 2017 at 09:32 Discharge Date/Time Mar 11, 2017 at 17:58 Discharge Diagnosis -Paroxysmal atrial fibrillation - Recurrent incarcerated incisional hernia and rectal prolapse status post an open recurrent incarcerated incisional hernia repair with implantation of mesh and lysis of adhesions, status post laparoscopic converted to open rectopexy. - Diabetes mellitus type 2. - HTN Patient Condition: Good Hx of Present Illness The patient is a 71-year-old female with recurrent incarcerated incisional hernia and rectal prolapse. The patient was evaluated in surgical consultation by Dr. Person. The patient was brought to the hospital and underwent laparoscopic converted to open rectopexy open recurrent incarcerated incisional hernia repair with implantation of mesh and lysis of adhesions. Postoperatively, the patient experienced significant pain, and patient was started on [employer] Dilaudid and admitted for further evaluation and management to medical/surgical floor. The patient currently denies any nausea, vomiting, fever. Hospital Course -Paroxysmal atrial fibrillation with rapid ventricular response, now in SR. Dr. Carter is following and cardiology consultation, continue digoxin amiodarone and metoprolol. Continue Lovenox. d/sarita on Eliquis. - Recurrent incarcerated incisional hernia and rectal prolapse status post an open recurrent incarcerated incisional hernia repair with implantation of mesh and lysis of adhesions, status post laparoscopic converted to open rectopexy. Continue to follow up surgical recommendation. Zofran p.r.n. for nausea, morphine as needed for pain Advance diet per surgery. - Diabetes mellitus type 2. Continue Lantus and NovoLog per mild sliding scale. - Hypertension. Continue to monitor blood pressure, hydralazine p.r.n. for systolic blood pressure above 170. Home Meds Active Scripts Digoxin* (Digitek*) 125 Mcg Tablet, 0.125 MG PO DAILY@13 for 30 Days, TAB Prov:SHILA PRESSLEY 03/10/17 Lisinopril* (Lisinopril*) 5 Mg Tablet, 2.5 MG PO DAILY for 30 Days, TAB Prov:SHILA PRESSLEY 03/10/17 Amiodarone Hcl* (Amiodarone Hcl*) 200 Mg Tablet, 200 MG PO TID for 30 Days, TAB Prov:SHILA PRESSLEY 03/10/17 Apixaban* (Eliquis*) 5 Mg Tablet, 5 MG PO BID for 30 Days, TAB Prov:SHILA PRESSLEY 03/10/17 Reported Medications Hydrocodone Bit-Acetaminophen (Hydrocodone Bit-APAP) 5-325MG Tablet, #12 12/06/16 Pravastatin Sodium* (Pravastatin Sodium*) 20 Mg Tablet, 20 MG PO HS, TAB 12/06/16 Furosemide* (Furosemide*) 20 Mg Tablet, 20 MG PO DAILY, #60 TAB 11/12/16 Allopurinol* (Allopurinol*) 100 Mg Tablet, 100 MG PO DAILY, TAB 11/12/16 Nitroglycerin* (Nitroglycerin* SL) 0.4 Mg Tab.subl, 0.4 MG SL Q5MIN Y for CHEST PAIN, BOTTLE 11/12/16 Gabapentin* (Gabapentin*) 300 Mg Capsule, 300 MG PO HS, #60 CAP 05/12/16 Folic Acid* (Folic Acid*) 1 Mg Tablet, 1 MG PO DAILY, TAB 05/12/16 Insulin Glargine* (Lantus*) 100 Unit/Ml Soln, 15 UNIT SC QPM, #1 VIAL 02/23/16 Discontinued Reported Medications Metoprolol Tartrate* (Lopressor*) 25 Mg Tablet, 25 MG PO DAILY, #60 TAB 11/12/16 Losartan Potassium* (Cozaar*) 25 Mg Tablet, 25 MG PO DAILY, #30 TAB 05/12/16 Follow-up Plan F/up with PMD in 2 weeks, f/up with Dr Person in 2 weeks. Primary Care Provider [facility] SH[facility]A Guzmán Mar 14, 2017 20:19
== END 2017-03-11 17:58 | disposition home or self-care (01) | DRG 331 ==
LOC: SDS 05:50 → MS1 10:25 → SDS 10:25 → MS1 11:18 → OBSVTOIN 03-05 09:32 → MS4 03-05 09:59
PROVIDERS: ADMIT Internal Medicine; ATTEND Surgery
PROC: 0DSP0ZZ Reposition Rectum, Open Approach (ICD-10-PCS; 2017-03-03)
PROC: 0WJF4ZZ Inspection of Abdominal Wall, Percutaneous Endoscopic Approach (ICD-10-PCS; 2017-03-03)
PROC: 0DNW4ZZ Release Peritoneum, Percutaneous Endoscopic Approach (ICD-10-PCS; 2017-03-03)
PROC: 0WUF0JZ Supplement Abdominal Wall with Synthetic Substitute, Open Approach (ICD-10-PCS; principal; 2017-03-03 07:30)
DX: K43.0 Incisional hernia with obstruction, without gangrene (principal); I95.9 Hypotension, unspecified; I48.91 Unspecified atrial fibrillation; E11.9 Type 2 diabetes mellitus without complications; D64.9 Anemia, unspecified; I10 Essential (primary) hypertension; K62.3 Rectal prolapse; Z53.31 Laparoscopic surgical procedure converted to open procedure
CPT/HCPCS: 74000; 80048; 80053; 82962; 84436; 84443; 84484; 84703; 85025; 88302; 93005; 93306; 97162; G0378; J0690; J1170; J1650; J1815; J2175; J2270; J2405; J2710; J3010; J7030; J7040; Q4166